=== PATIENT | female | born 1950 | race Caucasian/White ===

== ENCOUNTER → 2017-12-11 12:14 | Outpatient (CLI) | payer MEDICARE, MEDICAID | END | disposition home or self-care (01) | LOC: D.MRI 12:14 | DX: R51 Headache (principal); R26.9 Unspecified abnormalities of gait and mobility; H53.8 Other visual disturbances ==

== ENCOUNTER 2018-11-05 02:55 | Emergency (ER) | payer OTHER, MEDICAID ==
[~2018-11-05] VITALS: Ht 165.1 cm; Wt 54.5 kg
[2018-11-05 02:56] VITALS: Ht 165.1 cm; Wt 54.5 kg
[2018-11-05] MEDS ORDERED: PROZAC20 MG PO (02:57)
[2018-11-05] MEDS ORDERED: HYDROCODON-ACE1 EA10 PO (02:57)
[2018-11-05] MEDS ORDERED: LYRICA150 MG PO (02:57)
[2018-11-05 05:19] VITALS: BP 156/88
== END 2018-11-05 05:38 | disposition home or self-care (01) ==
LOC: D.ER 02:55
DX: S01.91XA Laceration without foreign body of unspecified part of head, initial encounter (principal); W18.09XA Striking against other object with subsequent fall, initial encounter; Y93.89 Activity, other specified; Y92.010 Kitchen of single-family (private) house as the place of occurrence of the external cause

== ENCOUNTER 2019-08-29 14:57 | Inpatient (IN) | payer OTHER, MEDICAID ==
[~2019-08-29] VITALS: Ht 165.1 cm; Wt 59.1 kg
[2019-08-29] VITALS (10 sets, daily range): BP systolic 112–152; BP diastolic 79–97; BMI 19.2
--- NOTE | ~2019-08-29 | HEMODYNAMI ---
PATIENT:JALEN JAMIL MEDICAL RECORD: [id number] : 52 LOCATION:[facility] ADMISSION DATE: 08/29/19 Generatedon:08/30/20199:45 Patient name: JALEN JAMIL Patient #: [id number] SSN: : 1950 Date of study: 08/30/2019 Page: Of Hemodynamic Procedure Report Patient Data Patient Demographics Procedure consent was obtained First Name: JALEN Gender: Female Last Name: OMERO : 1950 [facility] Initial: TILA Age: 68 year(s) Patient #: [id number] Race: Unknown Additional ID: [id number] Contact details Address: [address] [place] [address] [address] State: [place] City: [place] Zip code: [address] Past Medical History Allergies: No known allergies Admission Admission Data Admission Date: 08/29/2019 Admission Time: 16:48 Admit Source: Emergency department Room #: [id number] Height (in.): 64.96 BSA: 1.57 (m2) Height (cm.): 165 BMI: 19.47 (kg/m2) Weight (lbs.): 116.85 Weight (kg.): 53 Lab Results Lab Result Date: 08/30/2019 Lab Result Time: 0:00 Biochemistry Name Units Result Min Max BUN mg/dl 12 --(-*--)-- 7 18 Creatinine mg/dl 0.8 --(-*--)-- 0.6 1.3 eGFR ml/min 76.92099 *-(----)-- 90 120 NONAFRICAN CBC Name Units Result Min Max Hematocrit % 39.3 -*(----)-- 42 54 Hemoglobin g/dl 13.6 --(*---)-- 13.5 17.5 Procedure Procedure Types Cath Procedure Diagnostic Procedure LHC LH w/Coronaries Sedation Charges Moderate Sedation up to 15 minutes PCI Procedure Coronary Stent Coronary Stent Initial Hemochron ACT Test Procedure Description Procedure Date Procedure Date: 08/30/2019 Procedure Start Time: 9:08 Procedure End Time: 9:39 Procedure Staff Name Function Francisco Mills MD Performing Physician Krys Sam RT Monitor Olga Han RT Oil Separator Elena Lopez RT Scrub Padmini Fulton RN Nurse Procedure Data Cath Procedure Fluoroscopy Diagnostic fluoroscopy Total fluoroscopy Time: 7.5 time: 7.5 min min Diagnostic fluoroscopy Total fluoroscopy dose: 473 dose: 473 mGy mGy Contrast Material Contrast Material Type Amount (ml) Isovue 300 98 Entry Location Entry Primary Successful Side Size Upsize Upsize Entry Closure Succes sful Closure Location (Fr) 1 (Fr) 2 (Fr) Remarks Device Remarks Femoral Right 6 Fr 6 Fr Exoseal artery Short Long Estimated blood loss: 10 ml Diagnostic catheters Device Type Used For End Catheter Placement MULTIPACK JL 4.0 5Fr Procedure catheter MULTIPACK 3DRC 5Fr Procedure catheter MULTIPACK Pigtail 5 Fr Procedure catheter Procedure Complications No complications Procedure Medications Medication Administration Route Dosage 0.9% NaCl I.V. 100 ml/hr Oxygen etCO2 Nasal cannula 2 l/min Lidocaine 2% added to field 20 Heparin Flush Bag added to field 2 bags (1000units/500ml NS) Versed I.V. 2 mg Fentanyl I.V. 50 mcg Versed I.V. 2 mg Fentanyl I.V. 50 mcg Heparin Bolus I.V. 5000 units Plavix P.O. 75 mg Hemodynamics Rest BSA: 1.57 (m2) HGB: 13.6 (g/dl) O2 Consumption: Estimated: 150.42 (ml/min) O2 Co nsumption indexed: Estimated:95.81 (ml/min/m) Heart Rate: 78 (bpm) Pressure Samples Time Site Value (mmHg) Purpose Heart Use Rate(bpm) 9:18 LV 113/21,23 Snapshot 85 9:18 AO 116/67(77) Pullback 86 Gradients Valve Time Site Site 2 Mean SEP/DFP Peak To Heart Use 1 (mmHg) (sec/min) Peak Rate (mmHg) (bpm) Aortic 9:18 LV AO 4 15 86 116/67(77) Calculations Valve P-P Mean Valve Index Valve Source Name Gradient Area Flow (cm2) Aortic 4 4 Snapshots Pre Cath Intra NCS Post Cath Vital Signs Time Heart Resp SPO2 etCO2 NIBP (mmHg) Rhythm Pain Sedation Rate (ipm) (%) (mmHg) Status Level (bpm) 8:55:01 79 17 96 33 139/85(105) NSR 0 (11) 10(A) , No pain 8:59:11 80 13 96 26.2 135/86(111) NSR 0 (11) 10(A) , No pain 9:04:10 78 12 97 33.7 Measuring NSR 0 (11) 10(A) , No pain 9:04:34 81 17 97 35.2 126/79(106) NSR 0 (11) 10(A) , No pain 9:08:46 79 16 96 36.7 126/75(98) NSR 0 (11) 10(A) , No pain 9:12:54 78 13 96 30.7 113/74(89) NSR 0 (11) 10(A) , No pain 9:17:04 83 13 95 1.5 102/67(82) NSR 0 (11) 9(A) , No pain 9:21:12 80 14 96 11.9 103/60(84) NSR 0 (11) 9(A) , No pain 9:25:18 85 18 95 11.2 110/66(85) NSR 0 (11) 9(A) , No pain 9:29:25 83 10 97 38.2 101/66(83) NSR 0 (11) 9(A) , No pain 9:33:29 80 15 100 37.4 109/68(87) NSR 0 (11) 9(A) , No pain 9:37:35 77 17 100 34.4 115/75(95) NSR 0 (11) 10(A) , No pain Medications Time Medication Route Dose Verified Delivered Reason Notes Effectiveness by by 9:01:00 0.9% NaCl I.V. 100 Francisco Padmini used for ml/hr Gene Donaldo procedure RN 9:01:08 Oxygen etCO2 2 Francisco Padmini used for Nasal l/min Gene Donaldo procedure cannula MD MENDOZA 9:01:13 Lidocaine 2% added 20ml Francisco Singh for local to vial [facility] anesthetic field MD AVILA 9:01:17 Heparin Flush added 2 Francisco Francisco [facility] ([facility]units/500ml field MD AVILA NS) 9:06:13 Versed I.V. 2 mg Francisco Padmini for sedation St Saad Fulton MD RN 9:06:19 Fentanyl I.V. 50 Francisco Padmini for sedation mcg [facility] Saad Fulton MD RN 9:13:31 Versed I.V. 2 mg Francisco Padmini for sedation St Saad Fulton MD RN 9:13:33 Fentanyl I.V. 50 Francisco Padmini for sedation mcg [facility] Saad Fulton MD RN 9:16:14 Heparin Bolus I.V. 5000 Francisco Padmini for verifi ed units St Saad Fulton anticoagulation with Dr. AVILA RN [facility] 9:39:29 Plavix P.O. 75 mg Francisco Avendañoyla for Lonetree Donaldo antiplatelet RN therapy Procedure Log Time Note 8:21:53 Informed consent obtained and on chart 8:22:16 Procedure Status Urgent Heart Cath (IP). 8:22:17 Time tracking: Regular hours (M-F 7:00 - 5:00) 8:22:21 Plan of Care:Hemodynamics will remain stable., Cardiac rhythm will remain stable., Comfort level will be maintained., Respiratory function will remain adequate., Patient/ family verbilizes understanding of procedure., Procedure tolerated without complication., Recovers from procedure without complications.. 8:22:27 H&P Date Dictated: 08/30/2019 ER History on chart.. 8:22:36 Patient allergic to No known allergies 8:23:24 Lab Result : BUN 12 mg/dl 8:23:24 Lab Result : Creatinine 0.8 mg/dl 8:23:24 Lab Result : eGFR NONAFRICAN 76.22143 ml/min 8:23:24 Lab Result : Hemoglobin 13.6 g/dl 8:23:24 Lab Result : Hematocrit 39.3 % 8:23:33 Stress Test: no; N/A NSTEMI 8:24:53 Patient Weight : 116.85 lbs 8:24:56 Patient Height : 64.96 inches 8:25:05 Admit Source: Emergency department 8:35:59 Padmini Fulton RN sent for patient. Start room use. 8:47:22 Patient received from CVICU to CCL 1 Alert and oriented. Tansferred to table in Supine position. 8:47:23 Warm blankets applied, and jeison hugger turned on for patient comfort. 8:47:23 Correct patient and procedure confirmed by team. 8:47:24 ECG and BP/O2 sat monitors applied to patient. 8:48:06 Pre-procedure instructions explained to patient. 8:48:07 Pre-op teaching completed and patient verbalized understanding. 8:48:10 Family in waiting room. 8:48:12 Patient NPO since Midnight. 8:49:15 Previous problem with sedation/anesthesia? No ? 8:49:17 Snore? Yes 8:49:19 Sleep apnea? No 8:49:20 Deviated septum? No 8:49:22 Opens mouth fully? Yes 8:49:23 Sticks out tongue? Yes 8:49:26 Airway obstruction? No ? 8:49:38 Is patient on blood thinner?Yes 8:49:49 PT LOADED WITH 600 MG PLAVIX 8:49:52 Patient diabetic? No. 8:49:53 Patient not . Patient is over age 55. 8:49:58 Dentures? No ? 8:50:01 Pre procedure: right dorsailis pedis pulse 1+ Palpable, but thready & weak; easily obliterated 8:50:23 Patient pain scale 1/10 ?. 8:50:37 IV patent on arrival in right antecubital with 0.9% NaCl at O. 8:50:39 Lab results completed and on chart. 8:50:49 Right groin area was prepped with chlora-prep and draped in sterile fashion 8:50:50 Alarms reviewed by R. N. 8:50:50 Sharps counted by scrub and verified by R.N. 8:54:00 Vital chart was started 8:54:09 Rhythm: sinus rhythm 8:54:11 Full Disclosure recording started 8:54:21 Use device set Femoral Dx 8:54:23 ACIST Syringe (26454) opened to sterile field. 8:54:23 Bag Decanter (2001S) opened to sterile field. 8:54:24 ACIST Hand Control (13426) opened to sterile field. 8:54:25 ACIST Manifold (54436) opened to sterile field. 8:54:26 Tegaderm 4 x 4 (1626W) opened to sterile field. 8:54:28 EMERALD Guide Wire (287-550) opened to sterile field. 8:54:29 DIAGNOSTIC Multipack 5Fr catheter set (EA0978) opened to sterile field. 8:54:31 Medline Cath Pack ([id number]) opened to sterile field. 8:54:38 SHEATH 6FR Limon (WCA600) opened to sterile field. 8:54:54 WHISPER 300cm guide wire ([id number]) opened to sterile field. 8:54:54 INFLATOR Merit BasixCompak (IT5727) opened to sterile field. 8:55:10 Baseline sample Acquired. 9:01:00 0.9% NaCl 100 ml/hr I.V. was administered by Padmini Fulton RN; used for procedure; Verbal order read back and verified. 9:01:08 Oxygen 2 l/min etCO2 Nasal cannula was administered by aPdmini Fulton RN; used for procedure; Verbal order read back and verified. 9:01:13 Lidocaine 2% 20ml vial added to field was administered by Francisco Mills MD; for local anesthetic; Verbal order read back and verified. 9:01:17 Heparin Flush Bag (1000units/500ml NS) 2 bags added to field was administered by Francisco Mills MD; used for procedure; Verbal order read back and verified. 9:03:57 --------ALL STOP TIME OUT------ 9:03:58 Final Timeout: patient, procedure, and site verified with staff and physician. All members of the team are in agreement. 9:03:59 Right groin site verified by team. 9:04:02 Fire Safety Assessment: A--An alcohol-based skin anteseptic being used preoperatively., C--Open oxygen or nitrous oxide is being used., D--An ESU, laser, or fiber-optic light is being used. 9:04:06 Physical assessment completed. ASA score P 2 - A patient with mild systemic disease as per Francisco Mills MD. 9:05:08 2) 60-89 Mildly reduced kidney function, and other findings (as for stage 1) point to kidney disease. 9:05:12 Maximum allowable contrast dose (3.7 X eGFR X 0.75)210 ml. 9:05:15 Sedation plan: IV Moderate Sedation Medication:Versed, Fentanyl 9:06:13 Versed 2 mg I.V. was administered by Padmini Donaldo RN; for sedation; Verbal order read back and verified. 9:06:15 Procedure started. 9:06:19 Fentanyl 50 mcg I.V. was administered by Padmini Fulton RN; for sedation; Verbal order read back and verified. 9:06:35 Zero performed for pressure channel P1 9:08:01 Local anesthetic to right femoral artery with Lidocaine 2% by Francisco Mills MD.INITIAL ACCESS ONLY 9:10:20 A 6 Fr Short sheath was inserted into the Right Femoral artery 9:10:50 GLIDE WIRE ANGLE 260cm ([id number]) opened to sterile field. 9:11:12 GLIDE WIRE USED TO ADVANCE CATHETER. 9:12:15 LONG SHEATH NEEDED 9:12:21 SHEATH 6FR Destination (RSR01) opened to sterile field. 9:12:29 Sheath upsized to a 6 Fr Long. 9:13:31 Versed 2 mg I.V. was administered by Padmini Fulton RN; for sedation; Verbal order read back and verified. 9:13:33 Fentanyl 50 mcg I.V. was administered by Padmini Fulton RN; for sedation; Verbal order read back and verified. 9:13:40 A MULTIPACK JL 4.0 5Fr catheter was advanced over the wire and used for Procedure. 9:15:35 LCA angiography performed. 9:15:37 Catheter removed. 9:15:48 A MULTIPACK 3DRC 5Fr catheter was advanced over the wire and used for Procedure. 9:16:14 Heparin Bolus 5000 units I.V. was administered by Padmini Fulton RN; for anticoagulation; verified with Dr. Robbins Verbal order read back and verified. 9:16:36 RCA angiography performed. 9:16:38 Catheter removed. 9:17:08 A MULTIPACK Pigtail 5 Fr catheter was advanced over the wire and used for Procedure. 9:17:56 LV gram done using PERRY 9:17:59 Injector settings: Ml/sec: 10, Volume: 20, 9:18:19 LV hemodynamics recorded. 9:18:32 EF : 30 % 9:18:44 Catheter removed. 9:19:02 GUIDE 6FR XBLAD 3.5 catheter ([id number]) opened to sterile field. 9:19:15 Pre PCI Site: [place] has 100% stenosis. 9:19:20 6 Fr XBLAD 3.5 guide catheter was inserted over the wire 9:19:47 WHISPER 300 wire advanced. 9:24:27 Wire advanced across lesion. 9:25:01 Inflate balloon Inflation number: 1 A EMERGE OTW 3.0 x 15 balloon ([id number]) was prepped and advanced across the Prox CX , then inflated to 12 DAMION for 0:00 (min:sec) . 9:25:50 Inflation number: 2 The EMERGE OTW 3.0 x 15 balloon ([id number]) was reinflated across the Prox CX , to 6 DAMION for 0:00 (min:sec) . 9:26:14 Inflation number: 3 The EMERGE OTW 3.0 x 15 balloon ([id number]) was reinflated across the Prox CX , to 6 DAMION for 0:00 (min:sec) . 9:26:30 Inflation number: 4 The EMERGE OTW 3.0 x 15 balloon ([id number]) was reinflated across the Prox CX , to 8 DAMION for 0:00 (min:sec) . 9:26:49 Inflation number: 5 The EMERGE OTW 3.0 x 15 balloon ([id number]) was reinflated across the Prox CX , to 8 DAMION for 0:00 (min:sec) . 9:27:22 Inflation number: 6 The EMERGE OTW 3.0 x 15 balloon ([id number]) was reinflated across the Prox CX , to 12 DAMION for 0:00 (min:sec) . 9:28:04 Balloon removed over the wire. 9:31:47 Place stent Inflation Number: 7 A VALENTINE OTW 3.5 x 22 stent ([id number]) was prepped and advanced across the Prox CX . The stent was deployed at 14 DAMION for 0:00 (min:sec) . 9:32:36 Stent catheter was removed intact over wire. 9:32:37 Wire removed. 9:32:38 Guide catheter removed. 9:33:45 LONG SHEATH EXCHANGED FOR SHORT SHEATH 9:33:49 EXOSEAL 6Fr (EX600) opened to sterile field. 9:35:22 Sheath removed intact; hemostasis achieved with Exoseal to the Right Femoral artery. 9:35:24 Procedure ended.(Physican Out) 9:35:37 Fluoroscopy time 07.50 minutes. :35:41 Fluoroscopy dose: 473 mGy 9:35:41 Flurop Dose total: 473 9:35:52 Dose Area Product 39558 mGy/cm. 9:35:56 Contrast amount:Isovue 300 98ml. 9:35:59 Maximum allowable dose exceeded? No. 9:36:00 Sharps counted by scrub and verified by R.N. 9:36:25 Post-op/insertion site Right Femoral artery dressed using a 4 x 4 and Tegaderm. 9:36:27 Post-procedure physical assessment completed. ASA score P 2 - A patient with mild systemic disease as per Francisco Mills MD. 9:37:57 Post procedure rhythm: sinus rhythm 9:37:59 Estimated blood loss: 10 ml 9:38:01 Post procedure instruction explained to patient.Patient verbalizes understanding. 9:38:01 Patient needs reinforcement of post procedure teaching. 9:38:22 Procedure type changed to Cath procedure, Diagnostic procedure, LHC, C w/Coronaries, Sedation Charges, Moderate Sedation up to 15 minutes, PCI procedure, Coronary Stent, Coronary Stent Initial, Hemochron ACT Test 9:39:03 Procedure and supply charges have been captured, reviewed, submitted and are correct. 9:39:06 Procedure Complication : No complications 9:39:08 Vital chart was stopped 9:39:10 [facility] Findings: MVD- PCI performed (see procedure note) 9:39:12 Operative report dictated upon procedure completion. 9:39:12 See physician's report for complete and final results. 9:39:14 Report given to Pre/Post Procedure Room. 9:39:17 Patient transfered to PCU with Bed. 9:39:21 Procedure ended. 9:39:21 Full Disclosure recording stopped 9:39:26 ACC-PCI Only Patient was given prescriptions, or instructed by Francisco Mills MD to start/continue the following medications upon discharge: Plavix 9:39:28 End room use (Document Last) 9:39:29 Plavix 75 mg P.O. was administered by Padmini Fulton RN; for antiplatelet therapy; Verbal order read back and verified. 9:40:44 ACT drawn and resulted at 253 seconds. (normal therapeutic range 180-240 seconds). Intervention Summary Intervention Notes Time ActionType Lesion and Equipment Action# Pressure Duration Attributes Used 9:25:01 Inflate Prox CX EMERGE OTW 1 12 00:00 balloon 3.0 x 15 balloon ([id number]) 9:25:50 Reinflate Prox CX EMERGE OTW 2 6 00:00 balloon 3.0 x 15 balloon ([id number]) 9:26:14 Reinflate Prox CX EMERGE OTW 3 6 00:00 balloon 3.0 x 15 balloon ([id number]) 9:26:30 Reinflate Prox CX EMERGE OTW 4 8 00:00 balloon 3.0 x 15 balloon ([id number]) 9:26:49 Reinflate Prox CX EMERGE OTW 5 8 00:00 balloon 3.0 x 15 balloon ([id number]) 9:27:22 Reinflate Prox CX EMERGE OTW 6 12 00:00 balloon 3.0 x 15 balloon ([id number]) 9:31:47 Place stent Prox CX VALENTINE OTW 3.5 7 14 00:00 x 22 stent ([id number]) Device Usage Item Name Manufacture Quantity Catalog Number Hospital Part Current M inimal Lot# / Charge Number Stock Stock Serial# Code ACIST Syringe Acist 1 50280 564432 516726 284317 2 0 (10137) Medical Systems Inc Bag Decanter Microtek 1 2001S 666155 48420 660240 5 (2002S) Medical Inc. ACIST Hand Acist 1 97892 699597 530080 176914 5 Control Medical (16586) Systems Inc ACIST Acist 1 67314 717637 173214 714243 5 Manifold Medical (32875) Systems Inc Tegaderm 4 x 3M 1 1626W 668533 853025 114251 5 4 (1626W) EMERALD Guide Cardinal 1 502-455 308800 965350 963371 5 Wire Health (502-455) DIAGNOSTIC Cardinal 1 IX8919 366683 31816 794586 3 0 Multipack 5Fr Health catheter set (JT2408) Medline Cath Medline 1 HCAZ00134 917640 23456 775929 5 Pack (AIRZ47721) SHEATH 6FR Terumo 1 NEJ358 446129 202473 945498 4 0 Limon (TCU165) WHISPER 300cm Romeo 1 [id number] 207816 679132 067973 5 guide wire Vascular (3520507SH) INFLATOR Merit 1 GD1529 611909 120007 660415 1 5 [facility] BasixCompak (NK1180) GLIDE WIRE Terumo 1 DY2481 081300 831084 430331 5 ANGLE 260cm (XT3506) SHEATH 6FR Terumo 1 RSR01 644522 56885 349282 5 Destination (RSR01) MULTIPACK JL Cardinal 1 055473 5 4.0 5Fr Health catheter MULTIPACK Cardinal 1 434405 5 3DRC 5Fr Health catheter MULTIPACK Cardinal 1 005477 5 Pigtail 5 Fr Health catheter GUIDE 6FR Cardinal 1 [id number] 424939 378327 433050 1 0 XBLAD 3.5 Health catheter (81516607) EMERGE OTW [place] 1 [id number] 410320 276148 456618 5 [id number] 3.0 x 15 Scientific balloon ([id number]) VALENTINE OTW 3.5 Medtronic 1 [id number] 563135 6111670 379659 5 [id number] x 22 stent ([id number]) EXOSEAL 6Fr Cardinal 1 EX600 981388 942811 643183 1 0 (EX600) Health Signature Audit [place] Stage Time Signature Unsigned Intra-Procedure 08/30/2019 Krys Sam 9:44:28 AM RT(R) Intra-Procedure 08/30/2019 Padmini Fulton 9:44:45 AM RN Intra-Procedure 08/30/2019 Francisco Bettencourt 9:45:04 AM Saad AVILA [facility] [address] [place] [address]
[~2019-08-29 14:57] MED LIST: HYDROCODON-ACE1 EA10 PO; LYRICA150 MG PO; PROZAC20 MG PO
[2019-08-29] MEDS ORDERED: VALIUM5 MG PO (15:00)
--- NOTE | 2019-08-29 15:15 | NUR ---
PT REPORTS PAIN ACROSS ENTIRE CHEST THAT WOKE HER FROM SLEEP AROUND 0300. PT STATES "I JUST LAYED IN BED UNTIL I COULD GET UP THEN I FINALLY GOT OUT OF BED, DRANK SOME CHOCOLATE MILK. I IMMEDIATELY THREW THAT UP...MY FRIEND FINALLY CONVINCED ME TO COME IN BECAUSE I TOLD HER MY PAIN WAS STARTING TO GO UP IN TO MY THROAT AND THEN MY JAWS." PT DENIES ANY PREVIOUS CARDIAC HISTORY. PT IS ALERT AND ORIENTED AT THIS TIME. REPORTS "A LITTLE BIT" OF NAUSEA. HAS ONLY VOMITTED 1 X TODAY. PT ON CARDIAC, BP AND PULSE OX MONITORING. WILL CON'T TO MONITOR PATIENT FOR CHANGES. PT REPORTS CHEST PAIN IS 4/10 AT TIME OF MY ASSESSMENT, "BUT IT WAS LIKE A 8 OR 9 THIS MORNING. I WAS PRETTY MISERABLE."
[2019-08-29 15:28] LABS: BASOPHILS 0.1 % (0-2); EOSINOPHILS 0.1 % (0-7); HEMATOCRIT 39.3 % (36.0-48.0); HEMOGLOBIN 13.6 g/dL (12-16); IMMATURE GRANULOCYTES 0.2 % (0-5); MCH 32.9 pg (26.0-34.0); MCHC 34.6 g/dL (31.0-37.0); MCV 95.2 fL (80.0-100.0); MEAN PLATELET VOLUME 10.6 fL (7.4-10.4); MONOCYTES 7.1 % (2-11); NEUTROPHILS 83.5 % (40-80); PLATELET COUNT 321 10x3/uL (130-400); RBC 4.13 10x6/uL (4.00-5.40); WBC 11.6 10x3/uL (4.8-10.8)
[2019-08-29 15:36] LABS: CALC OSMOLALITY 276 mosm/kg (275-300); CALCIUM 9.3 mg/dL (8.5-10.1); CARBON DIOXIDE 25.3 mmol/L (21.0-32.0); CHLORIDE - SERUM 99 mmol/L (98-107); CREATININE - SERUM 0.9 mg/dL (0.6-1.3); GLUCOSE 128 mg/dL (74-106); POTASSIUM - SERUM 4.4 mmol/L (3.5-5.1); SODIUM 138 mmol/L (136-145); UREA NITROGEN 10 mg/dL (7-18); eGFR NON AFRICAN AMERICAN 66 mL/min (90-120)
[2019-08-29 15:41] LABS: APTT 25.1 SECONDS (22.8-39.4); INR 0.89 (0.85-1.17)
[2019-08-29 15:51] LABS: ALBUMIN 3.7 g/dL (3.4-5.0); ALKALINE PHOSPHATASE 129 U/L (30-120); ALT (SGPT) 38 U/L (10-68); BILIRUBIN - TOTAL 0.31 mg/dL (0.2-1.3); CKMB 269.3 U/L (0.0-3.6); MAGNESIUM - SERUM 1.7 mg/dL (1.8-2.4); PROTEIN - SERUM 7.3 g/dL (6.4-8.2)
[2019-08-29 15:52] LABS: CREATINE KINASE 2742 UL (21-215)
[2019-08-29 15:53] LABS: TROPONIN-I 42.343 ng/mL (0.000-0.060)
--- NOTE | 2019-08-29 16:00 | NUR ---
EDP, JAH, AT BEDSIDE UPDATING PT AND FAMILY ON POC.
--- NOTE | 2019-08-29 16:30 | NUR ---
PROVIDED PT WITH ICE WATER.
--- NOTE | 2019-08-29 17:28 | NUR ---
DR. PINEDA AT BEDSIDE.
--- NOTE | 2019-08-29 17:32 | NUR ---
REPORT CALLED TO KATE MUSIC AGENT, AND REPORT GIVEN IN SBAR FORMAT. CVICU 6 IS DIRTY AT THIS TIME. PT WILL BE TRANSPORTED AFTER EVS CLEANS ROOM.
--- NOTE | 2019-08-29 18:10 | NUR ---
ADMITTED FROM ER, STOOD UP FROM STRETCHER AND AMBULATED TO BED. SKIN WARM AND DRY. IV RIGHT HAND WITHOUT REDNESS OR SWELLING. SALINE LOCK. DENIES CHEST PAIN BUT JUST DOES NOT FEEL GOOD RIGHT NOW. MONITOR SR. FEELS LIKE SHE MAY HAVE UTI. MED LIST REVIEWED. NO KNOW ALLERGIES.
[2019-08-29] MEDS ORDERED: LYRICA200 MG PO (18:20)
--- NOTE | 2019-08-29 19:00 | NUR ---
REPORT RECEIVED. RECEIVED PATIENT IN BED, AWAKE AND ALERT. ORIENTED X 4. FAMILY AT BEDSIDE. QUESTIONS ANSWERED. ASSESSMENT COMPLETED PER FLOW SHEET WITH NO ACUTE DISTRESS OBSERVED. MONITORS CONNECTED TO PATIENT WITH ALARMS SET. VSS. CALL LIGHT IN REACH AND ABLE TO UTILIZE TO MAKE NEEDS KNOWN.
--- NOTE | 2019-08-29 21:00 | NUR ---
RESTING WITH EYES CLOSED, EASILY ROUSED AND ALERT. DENIES NEEDS AT THIS TIME. VSS. CALL LIGHT IN REACH
[2019-08-29 22:22] LABS: CKMB 508.8 U/L (0.0-3.6); CREATINE KINASE 4000 UL (21-215); TROPONIN-I 80.106 ng/mL (0.000-0.060)
--- NOTE | 2019-08-29 23:00 | NUR ---
RESTING WITH EYES CLOSED, EASILY ROUSED AND ALERT. VSS. CALL LIGHT IN REACH. REASSESSMENT COMPLETED PER FLOW SHEET WITH NO ACUTE DISTRESS OBSERVED.
[2019-08-30] VITALS (28 sets, daily range): BP systolic 84–140; BP diastolic 45–84
--- NOTE | 2019-08-30 01:00 | NUR ---
RESTING WITH EYES CLOSED, EASILY ROUSED AND ALERT. VSS. CALL LIGHT IN REACH
--- NOTE | 2019-08-30 03:00 | NUR ---
RESTING WITH EYES CLOSE, EASILY ROUSED AND ALERT. REASSESSMENT COMPLETED PER FLOW SHEET WITH NO ACUTE DISTRESS OBSERVED. VSS. CALL LIGHT IN REACH
--- NOTE | 2019-08-30 04:45 | NUR ---
RECIEVED PATIENT TO ROOM CV01 FROM ED ACCOMPANIED BY ED RN AND PATIENT'S . ASSISSTED TO CVICU BED, MONITORS CONNECTED TO PATIENT. HR 35. BP 103/42 NO ACUTE DISTRESS OBSERVED. PATIENT AWAKE ALERT AND CONVERSANT. ORIENTED X 4. ORIENTED TO UNIT/ROOM/CALL LIGHT AND VISITATION SCHEDULE. QUESTIONS ANSWERED. CALL LIGHT PLACED IN EASY REACH AND ABLE TO UTILIZE TO MAKE NEEDS KNOWN.
[2019-08-30 06:52] LABS: CALC OSMOLALITY 272 mosm/kg (275-300); CALCIUM 8.8 mg/dL (8.5-10.1); CARBON DIOXIDE 26.7 mmol/L (21.0-32.0); CHLORIDE - SERUM 99 mmol/L (98-107); CREATININE - SERUM 0.8 mg/dL (0.6-1.3); GLUCOSE 152 mg/dL (74-106); MAGNESIUM - SERUM 1.6 mg/dL (1.8-2.4); POTASSIUM - SERUM 4.3 mmol/L (3.5-5.1); SODIUM 135 mmol/L (136-145); UREA NITROGEN 12 mg/dL (7-18); eGFR NON AFRICAN AMERICAN 76 mL/min (90-120)
[2019-08-30 06:54] LABS: CKMB 359.6 U/L (0.0-3.6); CREATINE KINASE 3987 UL (21-215)
[2019-08-30 08:32] LABS: BASOPHILS 0.1 % (0-2); EOSINOPHILS 0 % (0-7); HEMATOCRIT 37.6 % (36.0-48.0); HEMOGLOBIN 12.7 g/dL (12-16); IMMATURE GRANULOCYTES 0.2 % (0-5); LYMPHOCYTES 6.8 % (15-50); MCH 31.9 pg (26.0-34.0); MCHC 33.8 g/dL (31.0-37.0); MCV 94.5 fL (80.0-100.0); MEAN PLATELET VOLUME 10.9 fL (7.4-10.4); MONOCYTES 9.9 % (2-11); PLATELET COUNT 317 10x3/uL (130-400); RBC 3.98 10x6/uL (4.00-5.40); RDW 12.7 % (11.5-14.5)
[2019-08-30 08:40] LABS: CHOL - HDL RATIO 4.3 ratio (2.3-4.1); LDL-HDL RATIO 3.1 ratio (1.5-3.5)
--- NOTE | 2019-08-30 10:24 | NUR ---
0845: TO [facility] VIA BED. 1000: RETURN FROM [facility].
--- NOTE | 2019-08-30 18:32 | HP ---
PATIENT: JALEN JAMIL MEDICAL RECORD: [id number] ACCOUNT: [id number] LOCATION:IZA ChakrabortyCV06 : 52 ADMISSION DATE: 08/29/19 PCP: LETICIA BEATTY HISTORY AND PHYSICAL EXAMINATION REASON FOR ADMISSION: Chest pain. HISTORY OF PRESENT ILLNESS: The patient is a 68-year-old female with no previous cardiac history, presents to the Emergency Room by way of family member after waking about 3:00 a.m. this morning with substernal chest pain eventually radiating to her neck and ears with nausea and diaphoresis. She thought it was indigestion and eventually came to the hospital about 3:00 when her grandson said it might be her heart. In the ED, she received nitroglycerin and morphine with relief in her symptoms and now chest pain free. Initial cardiac enzymes are elevated with CPK of 2742. CPK-MB of 269.3, troponin of 42.34 with a normal EKG. Dr. Perez stabilized the patient, consulted Dr. Robbins who requested anticoagulation, CCU admission and PTCA in the morning unless she becomes unstable tonight. She states she has been little fatigued recently, but has not had any exertional chest pain and was surprised that she was having a heart attack. PAST MEDICAL HISTORY: Fibromyalgia, history of benzodiazepine dependence, hyperlipidemia, essential hypertension, insomnia, osteoarthritis of her hip, and degenerative lumbar disc disease. PAST SURGICAL HISTORY: She has had hysterectomy, incidental appendectomy and elective breast implants. HOME MEDICATIONS: Valium 5 mg p.o. twice a day., [place] 10/325 t.i.d., Prozac 40 mg daily, Lyrica 200 mg p.o. b.i.d., magnesium oxide 400 mg p.o. b.i.d., cetirizine 10 mg a day, Ventolin HFA inhaler p.r.n., and Cogentin 1 mg b.i.d. SOCIAL HISTORY: She is , has had new living situation, now living at the [facility] after some of her family, sisters, moved to the [facility]. She is a half pack a day smoker for 30 years. Smokes some pot, but does not drink alcohol. FAMILY HISTORY: Positive for coronary artery disease and diabetes. REVIEW OF SYSTEMS: CONSTITUTIONAL: No fever or fatigue. HEENT: No recent visual change, sinus congestion, or sore throat. Does wear glasses. RESPIRATORY: No shortness of breath or cough except for mild shortness of breath during her episode today. CARDIAC: No prior history of exertional chest pain, palpitations until early this morning with substernal chest pain radiating into her neck and both ears. No recent exertional dyspnea. GASTROINTESTINAL: He has had some nausea with chest pain today, but otherwise no recent dyspepsia, change in stools, blood per rectum. GENITOURINARY: No incontinence. GYNECOLOGIC: No vaginal bleeding. PSYCHIATRIC: Admits to depressed mood. PHYSICAL EXAMINATION: HISTORY AND PHYSICAL [id number] OMEROJALEN ADORNO VITAL SIGNS: Temperature 98.1, pulse 65, blood pressure 144/91 with a sat 97% on room air. GENERAL: The patient is alert and oriented. HEENT: Eyes are clear. Oropharynx unremarkable. NECK: Supple. CHEST WALL: Nontender. BREAST: Not examined. ABDOMEN: Soft, nontender. No organomegaly. LUNGS: Clear. PELVIC: Deferred. EXTREMITIES: No CC&E. NEUROLOGIC: Oriented to person, place, and time. Cranial nerves intact, but no motor deficits. Gait is not tested. LABORATORY DATA: Shows a white count of 11.6 thousand, H&H of 13.6 and 39.3 with normal diff. Chemistry, glucose of 128 nonfasting. Magnesium low at 1.7. CPK 2742. MB 269.3, troponin 42.34. Potassium 4.4. INR is 0.89. Chest x-ray unremarkable except for breast implants. EKG shows no acute changes. ASSESSMENT: Non-ST elevated myocardial infarction, depression, fibromyalgia, and allergic rhinitis. PLAN: As above, the patient will be admitted to the CV ICU for anticoagulation. She has been loaded with Plavix and cardiology consult with Dr. Robbins. TRANSINT:[id number] Voice Confirmation ID: [id number] DOCUMENT ID: [id number] NELSON PINEDA MD at 1832 CC: [id number] DICTATION DATE: 08/29/19 174 GEOSPATIAL TECHNICIAN: 08/29/19 2309 [place] [address]
--- NOTE | 2019-08-30 19:00 | NUR ---
REPORT RECEIVED. RECEIVED PATIENT IN BED, RESTING WITH EYES CLOSED. EASILY ROUSED AND ALERT. ASSESSMENT COMPLETED PER FLOW SHEET WITH NO ACUTE DISTRESS OBSERVED. MONITORS CONNECTED TO PATIENT WITH ALARMS SET. VSS. CALL LIGHT IN REACH AND ABLE TO UTILIZE TO MAKE NEEDS KNOWN
--- NOTE | 2019-08-30 21:00 | NUR ---
RESTING WITH EYES CLOSED. VSS. CALL LIGHT IN REACH
--- NOTE | 2019-08-30 23:00 | NUR ---
REASSESSMENT COMPLETED PER FLOW SHEET WITH NO ACUTE DISTRESS OBSERVED. VSS. CALL LIGHT IN REACH
[2019-08-31] VITALS (15 sets, daily range): BP systolic 90–111; BP diastolic 43–63; Ht 165.1 cm; Wt 59.1 kg
--- NOTE | 2019-08-31 01:00 | NUR ---
RESTING WITH EYES CLOSED, EASILY ROUSED AND ALERT. VSS . CALL LIGHT IN REACH
--- NOTE | 2019-08-31 03:00 | NUR ---
RESTING WITH EYES CLOSED, EASILY ROUSED AND ALERT. REASSESSMENT COMPLETED PER FLOW SHEET WITH NO ACUTE DISTRESS OBSERVED. CALL LIGHT IN REACH
[2019-08-31 04:49] LABS: BASOPHILS 0.1 % (0-2); EOSINOPHILS 0 % (0-7); HEMATOCRIT 31.9 % (36.0-48.0); HEMOGLOBIN 10.5 g/dL (12-16); IMMATURE GRANULOCYTES 0.3 % (0-5); LYMPHOCYTES 9.2 % (15-50); MCH 30.9 pg (26.0-34.0); MCHC 32.9 g/dL (31.0-37.0); MCV 93.8 fL (80.0-100.0); MEAN PLATELET VOLUME 10.3 fL (7.4-10.4); MONOCYTES 12.4 % (2-11); RDW 12.8 % (11.5-14.5)
--- NOTE | 2019-08-31 05:00 | NUR ---
RESTING WITH EYES CLOSED, EASILY ROUSED AND ALERT. VSS. CALL LIGHT IN REACH
[2019-08-31 05:05] LABS: PLATELET COUNT 234 10x3/uL (130-400)
[2019-08-31 05:09] LABS: CALC OSMOLALITY 267 mosm/kg (275-300); CALCIUM 8.4 mg/dL (8.5-10.1); CARBON DIOXIDE 26.7 mmol/L (21.0-32.0); CHLORIDE - SERUM 99 mmol/L (98-107); CREATININE - SERUM 0.7 mg/dL (0.6-1.3); GLUCOSE 117 mg/dL (74-106); POTASSIUM - SERUM 4.3 mmol/L (3.5-5.1); SODIUM 132 mmol/L (136-145); eGFR NON AFRICAN AMERICAN 88 mL/min (90-120)
[2019-08-31 05:12] LABS: MAGNESIUM - SERUM 2.1 mg/dL (1.8-2.4); UREA NITROGEN 18 mg/dL (7-18)
--- NOTE | 2019-08-31 09:07 | NUR ---
0700 PT RECIEVED IN BED ALERT AND ORIENTED VSS DENIES PAIN AND ALL NEEDS SEE SHIFT ASSESSMENT FOR DETAILS 0830 ATE 100% BREAKFAST UP IN CHAIR 0900 ASSISTED BACK TO BED, PER DR SANTIAGO OK TO TRANSFER TO PCU
--- NOTE | 2019-08-31 18:52 | MORECARE ---
CASE MANAGEMENT DISCHARGE SUMMARY PATIENT: JALEN JAMIL TILA UNIT: [id number] ADM DATE: 08/29/19 AGE: 68 : 51 SEX: F [facility] AUTHOR: EMMANUEL SEGOVIA PHYSICIAN: REFERRING PHYSICIAN: LETICIA BEATTY MD DATE OF SERVICE: 08/31/19 Discharge Plan Patient Name: JALEN JAMIL Facility: [facility]:[place] : 1950 Planned Disposition: Home Anticipated Discharge Date: Discharge Date: Expected LOS: Initial Reviewer: [email or web address] Initial Review Date: 08/31/2019 Generated: 08/31/19 7:52 pm Patient Name: JALEN JAMIL Page 61055 at 1852 All edits/amendments must be made on the electronic document DICTATION DATE: 08/31/191851 FIELD MACHINIST: SINCERE 08/31/191851 RPT#: [id number] DC DATE: STATUS: ADM IN [facility] [address] [place] [address] END OF REPORT
--- NOTE | 2019-08-31 18:59 | MORECARE ---
CASE MANAGEMENT DISCHARGE SUMMARY PATIENT: JALEN JAMIL TILA UNIT: [id number] ADM DATE: 08/29/19 AGE: 68 : 51 SEX: F ROOM/BED: D.06 AUTHOR: JULIETTE,DOC PHYSICIAN: REFERRING PHYSICIAN: LETICIA BEATTY MD DATE OF SERVICE: 08/31/19 Discharge Plan Patient Name: JALEN JAMIL Facility: [facility]:[place] : 1950 Planned Disposition: Home Anticipated Discharge Date: Discharge Date: Expected LOS: Initial Reviewer: [email or web address] Initial Review Date: 08/31/2019 Generated: 08/31/19 7:58 pm Comments DCP- Discharge Planning Updated by [email or web address]: Wendi Duarte on 08/31/19 5:[address] Patient Name: JALEN JAMIL Admission Status: ER Accout number: [id number] Admission Date: 08-29-2019 : 1950 Admission Diagnosis: Attending: LETICIA BEATTY Current LOS: 2 Anticipated DC Date: Planned Disposition: Home Primary Insurance: [employer]-DV Discharge Planning Comments: CM met with patient to complete initial dc planning assessment. CM educated patient on the CM role and verbal consent given by patient to complete assessment. Patient lives at home alone where she is independent with her care. At discharge patient plans to return home and feels this is a safe discharge. CM discussed availability of home health, rehab services, and medical equipment. She will have family drive her home. Patient denied known discharge needs at this time. CM will continue to follow and will assist as needed with dc plans/needs. Personal Chef: Wendi Duarte DCPIA - Discharge Planning Initial Assessment Updated by [email or web address]: Wendi Duarte on 08/31/19 6:54 pm * Is the patient Alert and Oriented? Yes * How many steps to enter\exit or inside your home? * PCP ROGERIO * Pharmacy [facility] * Preadmission Environment Home Alone * ADLs Independent * Equipment None * List name and contact numbers for known caregivers / representatives who currently or will assist patient after discharge: NHAN MENEZES [facility] - [phone] * Verbal permission to speak to the caregivers and representatives has been obtained from the patient. Yes * Community resources currently utilized None * Additional services required to return to the preadmission environment? No * Can the patient safely return to the preadmission environment? Yes * Has this patient been hospitalized within the prior 30 days at any hospital? No Last DP export: 08/31/19 5:52 pm Patient Name: JALEN JAMIL Page [id number] at 1859 All edits/amendments must be made on the electronic document DICTATION DATE: 08/31/191857 MANIPULATOR OPERATOR: SINCERE 08/31/191857 RPT#: [id number] DC DATE: STATUS: ADM [facility] [address] [place] [address] END OF REPORT
--- NOTE | 2019-08-31 19:00 | NUR ---
REPORT RECEIVED, SHIFT ASSESSMENT COMPLETE PER FLOW SHEET, PT SLEEPING WAKES AAOx4, DENIES PAIN AT THIS TIME, VSS, REPOSITIONED IN BED FOR COMFORT, 22g PIV IN RIGHT FA PATENT SALINE LOCKED DRSG C/D/I, ALL PULSES PALPABLE, SCD'S ON BLE, PT DENIES NEEDS AT THIS TIME, CALL LIGHT IN REACH, BED ALARM ON, WILL CONTINUE TO MONITOR
--- NOTE | 2019-08-31 21:00 | NUR ---
PT OUT OF BED TO BATHROOM, VOID NOTED PER PT, PT FLUSHED URINAL PRIOR TO NURSE ASSESSING, AMBULATED BACK TO BED WITHOUT ASSIST, REPOSITIONED IN BED FOR COMFORT, VSS, SCD'S PLACED ON BLE, CALL LIGHT IN REACH, BED ALARM ON, LARGE CUP WATER GIVEN PER REQUEST, MEDS GIVEN PER MAR/ORDERS, PT DENIES OTHER NEEDS AT THIS TIME, WILL CONTINUE TO MONITOR
[2019-09-01] VITALS (9 sets, daily range): BP systolic 91–110; BP diastolic 51–69
--- NOTE | 2019-09-01 00:30 | NUR ---
PT OUT OF BED TO BATHROOM, PT CLEANED PERIAREA WITH SURECARE WIPES PRIOR TO VOID IN SPECIMEN CONTAINER, URINE SENT TO LAB FOR UA, PT AMBULATED BACK TO BED AND REPOSITIONED FOR COMFORT, VSS, PT DENIES PAIN OR NEEDS AT THIS TIME, CALL LIGHT IN REACH, BED ALARM ON, WILL CONTINUE TO MONITOR
[2019-09-01 01:47] LABS: BILIRUBIN NEGATIVE (NEGATIVE); GLUCOSE NEGATIVE (NEGATIVE); KETONE MODERATE mg/dL (NEGATIVE); NITRITE NEGATIVE (NEGATIVE); UROBILINOGEN NORMAL (NORMAL)
[2019-09-01 01:48] LABS: BACTERIA FEW /hpf (NEGATIVE); EPITHELIAL CELLS 0-5 /hpf (0-5); RED CELLS - URINE 0-5 /hpf (0-5); WHITE CELLS - URINE 0-5 /hpf (NEGATIVE)
--- NOTE | 2019-09-01 03:00 | NUR ---
PT SLLEPING COMFORTABLY IN BED, WAKES EASY AAOx4, DENIES PAIN OR NEEDS AT THIS TIME, VSS, REPOSITIONED FOR COMFORT, SCD'S ON BLE, CALL LIGHT IN REACH, BED ALARM ON, WILL CONTINUE TO MONITOR
--- NOTE | 2019-09-01 04:37 | NUR ---
CALL LIGHT PRESSED, PT ASSISTED IN REPOSITIONING GOWN AND LINES FOR COMFORT, PT C/O LEFT SIDED HEADACHE 5/10 ON NUMERIC PAIN SCALE STATED PAIN STATRTED A " COUPLE HOURS AGO" AND " JUST GOT WORSE" IS WHY PT PRESSED CALL LIGHT, ALL VSS, MED GIVEN PER AUG/ORDERS, WILL CONTINUE TO MONITOR
--- NOTE | 2019-09-01 05:00 | NUR ---
PT OUT OF BED TO BATHROOM, DARK YELLOW CLEAR URINE NOTED, PT AMBULATED BACK TO BED AND REPOSITIONED FOR COMFORT, VSS, NSR ON CM, CALL LIGHT IN REACH, BED ALARM ON, PT DENIES FURTHER NEEDS, WILL CONTINUE TO MONITOR
[2019-09-01] MEDS ORDERED: PLAVIX75 MG PO (13:53)
[2019-09-01] MEDS ORDERED: NITROQUICK0.4 MG SL (13:55)
[2019-09-01] MEDS ORDERED: LIPITOR20 MG PO (13:56)
[2019-09-01] MEDS ORDERED: Zebeta PO (13:56)
[2019-09-01] MEDS ORDERED: ASPIRIN81 MG PO (13:56)
[2019-09-01] MEDS ORDERED: MACROBID100 MG PO (13:57)
--- NOTE | 2019-09-02 08:18 | CN ---
PATIENT NAME:SHANIA JAMIL MEDICAL RECORD: [id number] : 52 LOCATION:MARIA TID.CV06 ADMIT DATE: 08/29/19 ACCOUNT: [id number] CONSULTING PHYSICIAN: FARHEEN SANTIAGO MD REFERRING PHYSICIAN: LETICIA BEATTY MD DATE OF CONSULTATION: 08/30/2019 HISTORY OF PRESENT ILLNESS: Shania Jamil is a 68-year-old female with no known history of coronary artery disease, jail smoking history as well as family history. She was seen in the ER with onset of chest pain, thought that she was indigestion. Initial enzymes found to be elevated because of NSTEMI, no acute ST-T changes, ST elevation. We are asked to see her concerning her cardiovascular status. PAST MEDICAL HISTORY: Includes a history of neuropathy. ALLERGIES: None known. MEDICATIONS: Prozac 20 mg p.o. day, [place] 5/225 one q.4 hours p.r.n., Valium 5 b.i.d., Lyrica 200 mg p.o. b.i.d. SOCIAL HISTORY: Lives by herself, smokes about a pack a day. No alcohol. No set exercise program. Easily takes care of all her ADLs. REVIEW OF SYSTEMS: The patient reports easy bruising but reports no swollen glands. The patient reports no fever, no night sweats, no significant weight gain, no significant weight loss. No significant exercise tolerance. The patient reports no dry eyes, no irritation, no vision change. Patient reports no difficulty hearing and no ear pain. Patient reports no frequent nose bleeds or nose and sinus problems. Patient reports on arm pain on exertion. No shortness of breath while lying down. No history of heart murmur. Patient reports no cough, no wheezing or coughing up blood. Patient reports no abdominal pain, no vomiting. Normal appetite. No diarrhea and not vomiting blood. No nausea and no constipation. Patient reports no incontinence. No difficulty urinating. No hematuria. No increased frequency. Patient reports no muscle aches. No weakness, no arthralgias, no back pain. No swelling of the extremities. Patient reports no abnormal mole, no jaundice, no rashes. Reports no loss of consciousness. No weakness and no numbness. No seizures, dizziness, or headaches. The patient reports no depression, no sleep disturbance, feeling safe in a relationship and no alcohol abuse. Patient reports on fatigue. Reports no runny nose or sinus pressure. No itching, no hives, and no frequent sneezing. PHYSICAL EXAMINATION: GENERAL: Pleasant female, in no acute distress, appears stated age. VITAL SIGNS: Blood pressure 128/66, pulse 79 and regular. HEENT: Normocephalic, atraumatic. NECK: No JVD or bruit. HEART: Regular. LUNGS: Slightly prolonged expiratory phase with few expiratory wheezes. ABDOMEN: Soft, nontender. EXTREMITIES: Pulses are decreased, 1+. No edema. DIAGNOSTIC DATA: EKG shows no ST elevation. Nonspecific ECG changes inferolaterally. CONSULT REPORT [id number] SHANIA JAMIL IMPRESSION: NSTEMI. PLAN: For angiography, intervention based on above. TRANSINT:[id number] Voice Confirmation ID: [id number] DOCUMENT ID: [id number] FARHEEN SANTIAGO MD at 0818 CC: [id number] DICTATION DATE: 08/30/19 1000 CLIENT SOLUTIONS MANAGER: 08/30/19 1505 DIS IN 09/01/19 [facility] [address] [place] [id number]
--- NOTE | 2019-09-02 08:19 | OP ---
PATIENT NAME: JALEN JAMIL MEDICAL RECORD: [id number] :52 LOCATION:MyleneMAGDALENOChastity RameyRobinCV06 ADMISSION DATE:08/29/19 SURGEON: FARHEEN SANTIAGO MD DATE OF OPERATION: 08/30/2019 PROCEDURE: Left heart catheterization, selective coronary angiography, right femoral artery approach. CATHETERS: A 5-Togolese sheath, 5/4 left and right Brennen, 5/4 pig. The procedure was well tolerated. The patient returned to the betancourt, sheath removed. ExoSeal device placed. FINDINGS: Left ventriculography in 30-degree PERRY view shows global hypokinesis. Overall reduced LV function, estimated EF 30%. CORONARY ANATOMY: LEFT MAIN: Left main is free of disease. LAD: Has about 80% proximal stenosis. CIRCUMFLEX: Circumflex moderate size circumflex totally occluded in proximal portion. RIGHT CORONARY ARTERY: Has a smooth-walled vessel, free of disease. PLAN: Intervention momentarily. DESCRIPTION OF PROCEDURE: After a 5-Togolese sheath was exchanged for a long 6-Togolese sheath, XB LAD guide catheter provided excellent guide catheter support followed by a 300 cm Whisper wire. Whisper wire placed across the totally occluded circumflex down this portion of vessel. Predeployment balloon used was a 3.0 x 15 mm Taylor. Stent deployed was a 3.5 x 18 mm Ottoniel up to 14 atmospheres. Final angiography shows excellent resolution of 100% stenosis. No residual. AYSHA flow improved from 0 to 3. Sheath closed with ExoSeal device. The patient was previously loaded on Plavix. Heparin was used in the case. TRANSINT:[id number] Voice Confirmation ID: [id number] DOCUMENT ID: [id number] FARHEEN SANTIAGO MD at 0819 CC: [id number] DICTATION DATE: 08/30/19 1002 BLANK DRILLER: 08/30/19 1954 DIS IN 09/01/19 [facility] [address] [place] [address]
--- NOTE | 2019-09-02 19:22 | MORECARE ---
CASE MANAGEMENT DISCHARGE SUMMARY PATIENT: JALEN JAMIL TILA UNIT: [id number] ADM DATE: 08/29/19 AGE: 68 : 51 SEX: F ROOM/BED: D.06 AUTHOR: JULIETTE,DOC PHYSICIAN: REFERRING PHYSICIAN: LETICIA BEATTY MD DATE OF SERVICE: 09/02/19 Discharge Plan Patient Name: JALEN JAMIL Facility: [facility]:[place] : 1950 Planned Disposition: Home Anticipated Discharge Date: Discharge Date: 09/01/2019 Expected LOS: Initial Reviewer: [email or web address] Initial Review Date: 08/31/2019 Generated: 09/02/19 8:22 pm Comments DCP- Discharge Planning Updated by [email or web address]: Wendi Duarte on 08/31/19 5:[address] Patient Name: JALEN JAMIL Admission Status: ER Accout number: [id number] Admission Date: 08-29-2019 : 1950 Admission Diagnosis: Attending: LETICIA BEATTY Current LOS: 2 Anticipated DC Date: Planned Disposition: Home Primary Insurance: [id number] Discharge Planning Comments: CM met with patient to complete initial dc planning assessment. CM educated patient on the CM role and verbal consent given by patient to complete assessment. Patient lives at home alone where she is independent with her care. At discharge patient plans to return home and feels this is a safe discharge. CM discussed availability of home health, rehab services, and medical equipment. She will have family drive her home. Patient denied known discharge needs at this time. CM will continue to follow and will assist as needed with dc plans/needs. Structural Steel Trades Worker: Wendi Duarte DCPIA - Discharge Planning Initial Assessment Updated by [email or web address]: Wendi Duarte on 08/31/19 6:54 pm * Is the patient Alert and Oriented? Yes * How many steps to enter\exit or inside your home? * PCP ROGERIO * Pharmacy [facility] * Preadmission Environment Home Alone * ADLs Independent * Equipment None * List name and contact numbers for known caregivers / representatives who currently or will assist patient after discharge: NHAN MENEZES [facility] - [phone] * Verbal permission to speak to the caregivers and representatives has been obtained from the patient. Yes * Community resources currently utilized None * Additional services required to return to the preadmission environment? No * Can the patient safely return to the preadmission environment? Yes * Has this patient been hospitalized within the prior 30 days at any hospital? No Coverage Notice Reviewer: [id number] Jaimie Duarte Notice Issued Date-Time: 09/01/2019 15:05 Notice Type: IM Discharge Notice Notice Delivered To: Patient Relationship to Patient: Self Mill Helper Name: Delivery Method: HAND - Hand Delivered Tram Days: Prior Verbal Notification: Recipient Understood Notice: Yes Recipient Signature: Yes Med Rec Note Co-signed by Attending: Coverage Notice Comment: Last DP export: 08/31/19 5:59 pm Patient Name: JALEN JAMIL Page [id number] at 1921 All edits/amendments must be made on the electronic document DICTATION DATE: 09/02/191921 DIFFERENTIAL SPECIALIST: SINCERE 09/02/191921 RPT#: [id number] DC DATE:09/01/19 STATUS: DIS IN [facility] [address] [place] [address] END OF REPORT
== END 2019-09-01 15:45 | disposition home or self-care (01) | DRG 247 ==
LOC: D.ER 14:57 → D.ICU 16:48 → D.CVICU 16:48
PROVIDERS: Emergency Medicine; Family Medicine; Internal Medicine Interventional Cardiology; ADMIT Family Medicine; ATTEND Family Medicine
PROC: B2151ZZ Fluoroscopy of Left Heart using Low Osmolar Contrast (ICD-10-PCS; 2019-08-30)
PROC: 4A023N7 Measurement of Cardiac Sampling and Pressure, Left Heart, Percutaneous Approach (ICD-10-PCS; 2019-08-30)
PROC: 027034Z Dilation of Coronary Artery, One Artery with Drug-eluting Intraluminal Device, Percutaneous Approach (ICD-10-PCS; principal; 2019-08-30 08:30)
PROC: B2111ZZ Fluoroscopy of Multiple Coronary Arteries using Low Osmolar Contrast (ICD-10-PCS; 2019-08-30 08:30)
DX: I21.4 Non-ST elevation (NSTEMI) myocardial infarction (principal); N39.0 Urinary tract infection, site not specified; F32.9 Major depressive disorder, single episode, unspecified; M79.7 Fibromyalgia; J30.9 Allergic rhinitis, unspecified; E78.5 Hyperlipidemia, unspecified

== ENCOUNTER 2019-09-06 13:01 | Inpatient (IN) | payer OTHER, MEDICAID ==
[~2019-09-06] VITALS: Ht 165.1 cm; Wt 63.6 kg
--- NOTE | ~2019-09-06 | HEMODYNAMI ---
PATIENT:JALEN JAMIL MEDICAL RECORD: [id number] : 52 [facility]# [id number] ADMISSION DATE: 09/06/19 Generatedon:09/07/20198:58 Patient name: JALEN JAMIL Patient #: [id number] SSN: [id number] : 1950 Date of study: 09/07/2019 Page: Of Hemodynamic Procedure Report Patient Data Patient Demographics Procedure consent was obtained First Name: JALEN Gender: Female Last Name: OMERO : 1950 [facility] Initial: TILA Age: 68 year(s) Patient #: [id number] Race: SSN: [id number] Additional ID: [id number] Contact details Address: [address] [place] [address] [address] State: [place] City: [place] Zip code: [address] Past Medical History Allergies: No known allergies Admission Admission Data Admission Date: 09/06/2019 Admission Time: 14:51 Arrival Date: 09/07/2019 Arrival Time: 0:00 Admit Source: Transfer Insurance Payor: Private acute care facility health insurance Room #: D.2114 [facility] #: [id number] Height (in.): 64.96 BSA: 1.7 (m2) Height (cm.): 165 BMI: 23.51 (kg/m2) Weight (lbs.): 141.1 Weight (kg.): 64 Lab Results Lab Result Date: 09/07/2019 Lab Result Time: 0:00 Biochemistry Name Units Result Min Max BUN mg/dl 19 --(----)*- 7 18 Creatinine mg/dl 0.8 --(-*--)-- 0.6 1.3 eGFR ml/min 76.51709 *-(----)-- 90 120 NONAFRICAN CBC Name Units Result Min Max Hematocrit % 32.4 *-(----)-- 42 54 Hemoglobin g/dl 11 *-(----)-- 13.5 17.5 Procedure Procedure Types Cath Procedure Diagnostic Procedure LHC FFR/IVUS FFR Initial PCI Procedure Coronary Stent Coronary Stent Initial Procedure Description Procedure Date Procedure Date: 09/07/2019 Procedure Start Time: 8:35 Procedure End Time: 8:55 Procedure Staff Name Function Milad Smallwood MD Performing Physician Padmini Fulton RN Nurse Sharif Carr RT Monitor Elena Lopez RT Scrub Procedure Data Cath Procedure Fluoroscopy Diagnostic fluoroscopy Total fluoroscopy Time: 3.8 time: 3.8 min min Diagnostic fluoroscopy Total fluoroscopy dose: dose: 209.87 mGy 209.87 mGy Contrast Material Contrast Material Type Amount (ml) Isovue 300 57 Entry Location Entry Primary Successful Side Size Upsize Upsize Entry Closure Succes sful Closure Location (Fr) 1 (Fr) 2 (Fr) Remarks Device Remarks Femoral Left 6 Fr Exoseal artery Short Procedure Medications Medication Administration Route Dosage 0.9% NaCl I.V. 100 ml/hr Oxygen etCO2 Nasal cannula 2 l/min Lidocaine 2% added to field 20 Heparin Flush Bag added to field 2 bags (1000units/500ml NS) Versed I.V. 2 mg Fentanyl I.V. 50 mcg Versed I.V. 2 mg Fentanyl I.V. 50 mcg Heparin Bolus I.V. 4000 units Versed I.V. 2 mg Hemodynamics Rest BSA: 1.7 (m2) HGB: 11 (g/dl) O2 Consumption: Estimated: 153.69 (ml/min) O2 Consu mption indexed: Estimated:90.41 (ml/min/m) Heart Rate: 64 (bpm) Snapshots Pre Cath Intra NCS Post Cath Vital Signs Time Heart Resp SPO2 etCO2 NIBP Rhythm Pain Sedation Rate (ipm) (%) (mmHg) (mmHg) Status Level (bpm) 8:11:47 64 20 99 22.6 120/71(96) NSR 0 (11) 10(A) , No pain 8:15:51 62 13 98 31.7 108/65(90) NSR 0 (11) 10(A) , No pain 8:19:52 59 13 96 33.2 99/59(73) SB 0 (11) 10(A) , No pain 8:23:52 58 12 98 12.8 84/58(63) SB 0 (11) 10(A) , No pain 8:27:50 57 13 97 21.8 89/53(65) SB 0 (11) 10(A) , No pain 8:31:47 57 11 97 9 88/53(67) SB 0 (11) 10(A) , No pain 8:35:45 58 13 98 11 88/51(69) SB 0 (11) 10(A) , No pain 8:39:42 58 11 96 11.3 88/54(68) SB 0 (11) 10(A) , No pain 8:43:42 57 12 95 0 86/48(65) SB 0 (11) 9(A) , No pain 8:47:37 61 11 97 10.5 95/58(75) SB 0 (11) 10(A) , No pain 8:51:37 60 11 97 27.9 86/56(66) SB 0 (11) 10(A) , No pain 8:55:35 60 11 98 21.9 91/52(69) SB 0 (11) 10(A) , No pain Medications Time Medication Route Dose Verified Delivered Reason Notes Effectiveness by by 8:10:53 0.9% NaCl I.V. 100 Milad Padmini used for ml/hr Cl Fulton corrections specialist 8:11:06 Oxygen etCO2 2 Milad Padmini used for Nasal l/min Cl Fulton procedure cannula RN 8:11:11 Lidocaine 2% added 20ml Milad Milad for local to vial Cl Smallwood MD anesthetic field 8:11:16 Heparin Flush added 2 Milad Milad used for Bag to bags Cl Smallwood MD procedure (1000units/500ml field NS) 8:29:11 Versed I.V. 2 mg Milad Padmini for sedation Cl Fulton RN 8:29:18 Fentanyl I.V. 50 Milad Padmini for sedation mcg Cl Fulton RN 8:34:43 Versed I.V. 2 mg Milad Padmini for sedation Cl Fulton RN 8:34:53 Fentanyl I.V. 50 Milad Padmini for sedation mcg Cl Fulton RN 8:37:52 Heparin Bolus I.V. 4000 Milad Padmini for verifi ed units Cl Fulton anticoagulation with Dr. REJI Smallwood 8:41:35 Versed I.V. 2 mg Milad [place] for sedation Cl Fulton php mysql web developer Log Time Note 7:19:52 Informed consent obtained and on chart 7:20:00 Arrival Date: 09/07/2019 12:00:00 AM 7:20:42 Insurance Payor : Private health insurance 7:20:49 Patient Height : 64.96 inches 7:20:54 Patient Weight : 141.1 lbs 7:22:18 Lab Result : BUN 19 mg/dl 7::18 Lab Result : Hematocrit 32.4 % 7:22:18 Lab Result : eGFR NONAFRICAN 76.12818 ml/min 7:22:18 Lab Result : Creatinine 0.8 mg/dl 7:22:18 Lab Result : Hemoglobin 11 g/dl 7:23:06 Admit Source: Transfer acute care facility 7:23:13 Procedure Status Urgent Heart Cath (IP). 7:24:10 Patient allergic to No known allergies 7:26:48 Lab results completed and on chart. 7:26:55 Risk of Mortality: 1.6 7:27:00 Risk of blood transfusion: 5.0 7:27:05 Risk of SUSSY: 3.8 7:35:18 Time tracking: Regular hours (M-F 7:00 - 5:00) 7:35:37 ACC Patient presents with Stable Angina CCS Anginal Class 3--Marked limitation of physical activity, angina occurs with ordinary activity.. 7:51:59 Padmini Fulton RN sent for patient. Start room use. 7:52:09 Plan of Care:Hemodynamics will remain stable., Cardiac rhythm will remain stable., Comfort level will be maintained., Respiratory function will remain adequate., Patient/ family verbilizes understanding of procedure., Procedure tolerated without complication., Recovers from procedure without complications.. 8:01:08 Patient received from PCU to CCL 3 Alert and oriented. Tansferred to table in Supine position. 8:01:12 Warm blankets applied, and jeison hugger turned on for patient comfort. 8:01:13 Correct patient and procedure confirmed by team. 8:10:44 Vital chart was started 8:10:53 0.9% NaCl 100 ml/hr I.V. was administered by Padmini Fulton RN; used for procedure; Verbal order read back and verified. 8:11:06 Oxygen 2 l/min etCO2 Nasal cannula was administered by Padmini Fulton RN; used for procedure; Verbal order read back and verified. 8:11:11 Lidocaine 2% 20ml vial added to field was administered by Milad Smallwood MD; for local anesthetic; Verbal order read back and verified. 8:11:16 Heparin Flush Bag (1000units/500ml NS) 2 bags added to field was administered by Milad Smallwood MD; used for procedure; Verbal order read back and verified. 8:12:17 ECG and BP/O2 sat monitors applied to patient. 8:12:18 Baseline sample Acquired. 8:12:22 Rhythm: sinus rhythm 8:12:24 Full Disclosure recording started 8:13:13 H&P Date Dictated: 09/06/2019 Within 30 days and on chart.. 8:13:16 Pre-procedure instructions explained to patient. 8:13:18 Pre-op teaching completed and patient verbalized understanding. 8:13:21 Family unavailable. 8:13:25 Patient NPO since Midnight. 8:13:32 Is the patient allergic to Iodine/contrast media? No. 8:13:46 Is patient on blood thinner?Yes 8:13:49 ACC The patient was administered the following blood thiners within the last 24 hours: ACCPlavix 8:13:55 Patient diabetic? No. 8:14:01 Patient not . Patient is over age 55. 8:14:03 ----Pre-sedation anethsthesia assessment.---- 8:14:05 Previous problem with sedation/anesthesia? No ? 8:14:08 Snore? Yes 8:14:09 Sleep apnea? No 8:14:11 Deviated septum? No 8:14:12 Opens mouth fully? Yes 8:14:14 Sticks out tongue? Yes 8:14:17 Airway obstruction? No ? 8:14:21 Dentures? No ? 8:14:32 Pre procedure: left dorsailis pedis pulse 1+ Palpable, but thready & weak; easily obliterated 8:14:39 Modified Milton's test Ulnar > 7 seconds. 8:14:42 Patient pain scale 0/10 ?. 8:14:55 IV patent on arrival in left antecubital with 0.9% NaCl at [facility]. 8:15:02 Left groin area was prepped with chlora-prep and draped in sterile fashion 8:15:03 Alarms reviewed by R. N. 8:15:04 Sharps counted by scrub and verified by R.N. 8:15:20 Use device set Acist 8:15:21 ACIST Syringe (64269) opened to sterile field. 8:15:22 ACIST Hand Control (26349) opened to sterile field. 8:15:22 ACIST Manifold (07822) opened to sterile field. 8:15:32 EMERALD Guide Wire (502-835) opened to sterile field. 8:15:34 Bag Decanter (2002S) opened to sterile field. 8:15:36 Medline Cath Pack ([id number]) opened to sterile field. 8:16:12 INFLATOR Merit BasixCompak (QI0064) opened to sterile field. 8:16:20 SHEATH 6FR Jeanerette (WVC595) opened to sterile field. 8:20:56 CHOICE PT Extra Support 182cm wire ([id number]) opened to sterile field. 8:21:51 GUIDE 6FR XBLAD 3.5 catheter ([id number]) opened to sterile field. 8:25:40 Physician arrived 8:25:41 --------ALL STOP TIME OUT------ 8:25:42 Final Timeout: patient, procedure, and site verified with staff and physician. All members of the team are in agreement. 8:25:45 Left groin site verified by team. 8:25:49 Fire Safety Assessment: A--An alcohol-based skin anteseptic being used preoperatively., C--Open oxygen or nitrous oxide is being used., D--An ESU, laser, or fiber-optic light is being used. 8:25:53 Physical assessment completed. ASA score P 2 - A patient with mild systemic disease as per Milad Smallwood MD. 8:25:58 2) 60-89 Mildly reduced kidney function, and other findings (as for stage 1) point to kidney disease. 8:26:04 Maximum allowable contrast dose (3.7 X eGFR X 0.75)210 ml. 8:26:16 Sedation plan: IV Moderate Sedation Medication:Versed, Fentanyl 8:26:34 Zero performed for pressure channel P1 8:29:11 Versed 2 mg I.V. was administered by Padmini Fulton RN; for sedation; Verbal order read back and verified. 8:29:18 Fentanyl 50 mcg I.V. was administered by Padmini Fulton RN; for sedation; Verbal order read back and verified. 8:34:43 Versed 2 mg I.V. was administered by Padmini Fulton RN; for sedation; Verbal order read back and verified. 8:34:53 Fentanyl 50 mcg I.V. was administered by Padmini Fulton RN; for sedation; Verbal order read back and verified. 8:35:11 Procedure started. 8:35:17 Local anesthetic to left femerol artery with Lidocaine 2% by Milad Smallwood MD.INITIAL ACCESS ONLY 8:36:32 A 6 Fr Short sheath was inserted into the Left Femoral artery 8:36:54 Pre PCI Site: [place] LAD has 80% stenosis. 8:37:11 6 Fr XBLAD 3.5 guide catheter was inserted over the wire 8:37:52 Heparin Bolus 4000 units I.V. was administered by Padmini Fulton RN; for anticoagulation; verified with Dr. Smallwood Verbal order read back and verified. 8:38:16 [place] Verrata Plus pressure wire ([id number]) opened to sterile field. 8:39:05 PREPARING TO IFR THE CIRCUMFLEX DISTAL TO STENT 8:39:21 PRESSURE wire advanced. 8:40:43 Wire advanced across lesion. 8:41:35 Versed 2 mg I.V. was administered by Padmini Fulton RN; for sedation; Verbal order read back and verified. 8:42:03 mCirc lesion measured at 1.04 with IFR 8:42:18 Wire removed. 8:42:31 CHOICE wire advanced. 8:42:41 LAD 8:45:12 Place stent Inflation Number: 1 A VALENTINE RX 2.5 x 12 stent ([id number]) was prepped and advanced across the Dist LAD 80. The stent was deployed at 11 DAMION for 0:10 (min:sec) 0. 8:45:48 Stent catheter was removed intact over wire. 8:46:45 Place stent Inflation Number: 1 A VALENTINE RX 3.0 x 18 stent ([id number]) was prepped and advanced across the Mid LAD 80. The stent was deployed at 11 DAMION for 0:10 (min:sec) 0. 8:46:51 Stent catheter was removed intact over wire. 8:46:52 Wire removed. 8:46:53 Guide catheter removed. 8:47:51 EXOSEAL 6Fr (EX600) opened to sterile field. 8:48:55 Procedure ended.(Physican Out) 8:49:11 Fluoroscopy time 03.80 minutes. 8:49:20 Flurop Dose total: 209.87 8:49:20 Fluoroscopy dose: 209.87 mGy 8:49:31 Dose Area Product 1130.42 mGy/cm. 8:49:39 Contrast amount:Isovue 300 57ml. 8:49:43 Maximum allowable dose exceeded? No. 8:49:48 Sharps counted by scrub and verified by R.N. 8:50:05 ACT drawn and resulted at 208 seconds. (normal therapeutic range 180-240 seconds). 8:50:15 Sheath removed intact; hemostasis achieved with Exoseal to the Left Femoral artery. 8:51:06 Procedure type changed to Cath procedure, Diagnostic procedure, LHC, FFR/IVUS, FFR Initial, PCI procedure, Coronary Stent, Coronary Stent Initial 8:53:03 Insertion/operative site no bleeding no hematoma. 8:53:09 Post-op/insertion site Left Femoral artery dressed using a 4 x 4 and Tegaderm. 8:53:22 Post left femerol artery:stable 8:53:26 Post Procedure Pulses reassessed and unchanged 8:53:30 Post-procedure physical assessment completed. ASA score P 2 - A patient with mild systemic disease as per Milad Smallwood MD. 8:53:38 Post procedure rhythm: sinus rhythm 8:53:41 Procedure and supply charges have been captured, reviewed, submitted and are correct. 8:55:19 Vital chart was stopped 8:55:30 Operative report dictated upon procedure completion. 8:55:31 See physician's report for complete and final results. 8:55:34 Report given to PCU. 8:55:42 Patient transfered to PCU with Bed. 8:55:45 Procedure ended. 8:55:45 Full Disclosure recording stopped 8:56:05 ACC-PCI Only Patient was given prescriptions, or instructed by Milad Smallwood MD to start/continue the following medications upon discharge: Aspirin, Plavix 8:56:07 End room use (Document Last) 8:57:48 End room use (Document Last) Intervention Summary Intervention Notes Time ActionType Lesion and Equipment Used Action# Pressure Duration Attributes 8:45:12 Place stent Dist LAD VALENTINE RX 2.5 x 1 11 00:10 12 stent ([id number]) 8:46:45 Place stent Mid LAD VALENTINE RX 3.0 x 1 11 00:10 18 stent ([id number]) Device Usage Item Name Manufacture Quantity Catalog Number Hospital Part Current Minimal Lot# / Charge Number Stock Stock Serial# Code ACIST Syringe Acist 1 39133 029681 705961 152297 20 (88944) Medical Systems Inc ACIST Hand Acist 1 96830 280383 391864 206373 5 Control Medical (44092) Systems Inc ACIST Manifold Acist 1 54405 586468 929646 604776 5 (81108) Medical Systems Inc EMERALD Guide Cardinal 1 502-455 123014 730832 505660 5 Wire (502-427) Health Bag Decanter Microtek 1 2001S 773225 09376 216022 5 () Medical Inc. Medline Cath Medline 1 [id number] 267056 61430 044799 5 Pack ([id number]) INFLATOR Merit Merit 1 SZ7707 226602 674693 757994 15 Mersive (SR2371) SHEATH 6FR Terumo 1 RFE122 389910 162972 569943 40 Jeanerette (FAO659) CHOICE PT [place] 1 [id number] 284849 308813 148930 5 Extra Support Scientific 182cm wire ([id number]) GUIDE 6FR Cardinal 1 [id number] 132428 633217 343256 10 XBLAD 3.5 Health catheter (55423076) [place] 1 [id number] 774441 777076067 353857 5 Verrata Plus pressure wire (55008K) VALENTINE RX 2.5 x Medtronic 1 [id number] 909588 4482596 962969 5 12 stent ([id number]) VALENTINE RX 3.0 x Medtronic 1 [id number] 647238 8947702 055055 5 18 stent ([id number]) EXOSEAL 6Fr Cardinal 1 EX600 928607 447163 745723 10 (EX600) Health Signature Audit Calvin Stage Time Signature Unsigned Intra-Procedure 09/07/2019 Sharif Carr 8:56:32 AM RT(R) (CV) Intra-Procedure 09/07/2019 Padmini Fulton 8:57:48 AM RN Intra-Procedure 09/07/2019 Milad Smallwood 8:58:16 [address] [place] [id number] [place] [id number]
--- NOTE | ~2019-09-06 | CN ---
PATIENT NAME:JALEN JAMIL MEDICAL RECORD: [id number] : 52 LOCATION:D.M2 D.2114 ADMIT DATE: 09/06/19 ACCOUNT: [id number] CONSULTING PHYSICIAN: MAGAN PRESTON MD REFERRING PHYSICIAN: LETICIA BEATTY MD DATE OF CONSULTATION: 09/06/2019 ADMITTING DIAGNOSES: 1. Unstable angina. 2. Coronary artery disease. 3. Recent myocardial infarction with PTCA stent left circumflex, disease LAD. 4. Hyperlipidemia. HISTORY OF PRESENT ILLNESS: Mrs. Jamil presents with increasing shortness of breath and chest pain. She is status post PTCA stent of her left circumflex for an acute lateral myocardial infarction last week, she has concomitant disease of the LAD at 80-90% stenosis times 2 was set for that later this week, possibly. PHYSICAL EXAMINATION: CONSTITUTIONAL/GENERAL APPEARANCE: Well nourished, well developed, appears stated age. EYES: Lids and conjunctivae noninjected. No discharge. No pallor. ENT: Lips within normal limit. No cyanosis. No pallor. NECK: Carotid arteries, bilateral normal upstroke. No bruits. No thrills. No jugular venous pressure or distention. CERVICAL LYMPH NODES: Nontender. Nonenlarged. THYROID: Not enlarged. No nodules. CARDIOVASCULAR: Precordial exam, nondisplaced. No heaves or pericardial thrills. Rate and rhythm, regular. Heart sounds, normal S1, normal S2. No S3, no gallop, no rub. Systolic murmur, not heard. Diastolic murmur, not heard. RESPIRATORY: Respiratory effort, unlabored. Normal curvature. No thoracic deformity. No chest wall tenderness. Percussion, resonant. Auscultation, clear. No wheezes, no rales, no rhonchi. ABDOMEN: Soft, nondistended, nontender. No abdominal pain, no vomiting and normal appetite. MUSCULOSKELETAL: No joint tenderness, normal gait, normal tone. SKIN: Warm and dry. OVERALL IMPRESSION: Escalating angina with known disease of the left anterior descending. We will admit and plan for PTCA stent of the LAD tomorrow. TRANSINT:[id number] Voice Confirmation ID: [id number] DOCUMENT ID: [id number] MAGAN PRESTON MD CC: [id number] DICTATION DATE: 09/06/19 1343 SET AND EXHIBIT DESIGNER: 09/06/192009 ADM IN [facility] [address] [place] [place] [id number]
--- NOTE | ~2019-09-06 | OP ---
PATIENT NAME: JALEN JAMIL MEDICAL RECORD: [id number] :52 LOCATION:D.M2 D.2114 ADMISSION DATE:09/06/19 SURGEON: MAGAN PRESTON MD DATE OF OPERATION: 09/07/2019 PROCEDURES: 1. PTCA stent LAD. 2. Selective coronary angiography. 3. IFR left circumflex. INDICATION: Angina and coronary artery disease. PROCEDURE IN DETAIL: After informed consent was obtained and after a detailed description of risks, benefits as well as alternative therapies, the patient elected to proceed with angiogram and angioplasty. The left femoral area was prepped and draped in normal sterile fashion. Left femoral artery was cannulated via modified Seldinger technique with placement of 6-Romanian sheath. All catheters exchanged through this sheath. FINDINGS: The left circumflex has previously placed stents. There is a questionable stenosis after this; however, IFR was normal. We turned our attention to the LAD: Had 80% stenosis times 2, this was addressed with a 2.5 x 12 and 3.0 x 18 both Ottoniel stents. Result was 0% residual stenosis. OVERALL IMPRESSION: Successful percutaneous transluminal angioplasty stent of the left anterior descending going from 80% initial stenosis times 2 to 0% residual. TRANSINT:[id number] Voice Confirmation ID: [id number] DOCUMENT ID: [id number] MAGAN PRESTON MD CC: [id number] DICTATION DATE: 09/07/19 0849 SAND MIXER: 09/07/19 1854 ADM IN [facility] [address] [place] [address]
--- NOTE | ~2019-09-06 | EC ---
PATIENT:JALEN JAMIL DATE OF SERVICE: 09/06/19 SEX: F MEDICAL RECORD: [id number] DATE OF : 52 LOCATION:D.M2 D.211 AGE OF PATIENT: 68 ADMISSION DATE: 09/06/19 REFERRING PHYSICIAN: INTERPRETING PHYSICIAN: MAGAN SMALLWOOD MD ECHOCARDIOGRAM REPORT ECHO CHARGES 4 ECHO COMPLETE Date: 09/06/19 CLINICAL DIAGNOSIS: SOB, [place] ECHOCARDIOGRAPHIC MEASUREMENTS (adult normal given) AC root (d.<3.7cm) 2.3 cm LV Septum d (<1.2 cm> 0.8 cm Valve Excursion 1.5 cm LV Septum (systole) 1.5 cm Left Atria (s.<4.0cm> 4.4 cm LVPW d(<1.2cm) 1.0 cm RV (d.<2.3cm) 1.9 cm LVPW (sytole) 1.1 cm LV diastole(<5.6CM) 5.7 cm MV E-F(>70mm/sec) cm LV systole 3.7 cm LVOT Diameter 1.7 cm MV exc.(>10mm) cm Est.ejection fraction (50-75%) % DOPPLER: LVIT cm/sec A 37 cm/sec E 87 cm/sec LA cm/sec RVSP 58.0 mmHg LVOT 43 cm/sec AOP1/2T m/s Asc. Ao 177 cm/sec RVOT 54 cm/sec RA cm/sec PA 66 cm/sec AV Gradient Peak 12.6 mmHg AV Mean 7.6 mmHg AV Area 0.4 cm MV Gradient Peak 7.0 mmHg MV Mean 1.9 mmHg MV Area cm COMMENTS: Game Designer/Creative Director: Kathryn HYMAN Ornamental Metal Worker: 1 Dr. Smallwood TAPE# PACS Pericardial Effusion N DATE OF SERVICE: ECHOCARDIOGRAM FINDINGS: 1. Left ventricular chamber size is mildly dilated. Left ventricular systolic function is mildly reduced at 45% to 50%. 2. Left atrium is enlarged at 4.5 cm. Right atrium and right ventricular chamber sizes are within normal limits. 3. Valvular structures have normal structure and motion. ECHOCARDIOGRAM REPORT [id number] JALEN JAMIL 4. Doppler interrogation reveals mild mitral regurgitation, mild tricuspid regurgitation, no other valvular insufficiency or stenosis. Pulmonary systolic pressure is elevated estimated at 58 mmHg. 5. No evidence of pericardial effusion or left ventricular thrombus. TRANSINT:[id number] Voice Confirmation ID: [id number] DOCUMENT ID: [id number] MAGAN SMALLWOOD MD CC: [id number] DICTATION DATE: 09/06/19 1606 SHEAR GRINDER OPERATOR HELPER: 09/06/19 1908 ADM IN [address] [id number]
[~2019-09-06 13:01] MED LIST changes: +ASPIRIN81 MG PO; +LIPITOR20 MG PO; +LYRICA200 MG PO; +MACROBID100 MG PO; +NITROQUICK0.4 MG SL; +PLAVIX75 MG PO; +VALIUM5 MG PO; +Zebeta PO
[2019-09-06 13:33] LABS: BASOPHILS 0.4 % (0-2); EOSINOPHILS 4.7 % (0-7); HEMATOCRIT 32.4 % (36.0-48.0); IMMATURE GRANULOCYTES 0.2 % (0-5); LYMPHOCYTES 12.3 % (15-50); MCH 32.3 pg (26.0-34.0); MEAN PLATELET VOLUME 10.3 fL (7.4-10.4); MONOCYTES 12.7 % (2-11); NEUTROPHILS 69.7 % (40-80); RBC 3.41 10x6/uL (4.00-5.40); RDW 13.4 % (11.5-14.5); WBC 9.6 10x3/uL (4.8-10.8)
[2019-09-06 13:39] LABS: CALC OSMOLALITY 268 mosm/kg (275-300); CALCIUM 8.8 mg/dL (8.5-10.1); CHLORIDE - SERUM 97 mmol/L (98-107); CREATININE - SERUM 0.8 mg/dL (0.6-1.3); GLUCOSE 118 mg/dL (74-106); POTASSIUM - SERUM 3.7 mmol/L (3.5-5.1); SODIUM 133 mmol/L (136-145); UREA NITROGEN 19 mg/dL (7-18); eGFR NON AFRICAN AMERICAN 76 mL/min (90-120)
[2019-09-06 13:41] LABS: PLATELET COUNT 409 10x3/uL (130-400)
[2019-09-06 13:49] VITALS: BP 110/70
[2019-09-06 14:02] LABS: ALBUMIN 2.6 g/dL (3.4-5.0); ALKALINE PHOSPHATASE 107 U/L (30-120); ALT (SGPT) 27 U/L (10-68); CKMB 0.7 U/L (0.0-3.6); CREATINE KINASE 69 UL (21-215); PRO BNP 5045 pg/mL (0-125); PROTEIN - SERUM 6.6 g/dL (6.4-8.2)
[2019-09-06 14:05] LABS: TROPONIN-I 2.852 ng/mL (0.000-0.060)
--- NOTE | 2019-09-06 14:05 | NUR ---
ERP INFORMED OF TROPONIN 2.852.
[2019-09-06 14:30] VITALS: BP 117/75
[2019-09-06 15:30] VITALS: BP 124/73
[2019-09-06 16:30] VITALS: BP 163/85
--- NOTE | 2019-09-06 16:35 | NUR ---
ALISSON COMPLETE AT 2245.
--- NOTE | 2019-09-06 17:20 | NUR ---
RECEIVED PT TO ROOM 2113 VIA STRETCHER FROM ER AAOX4 RESP SOB O2 ON @5LPM CARLA W/D COLOR WNL WILL CONT TO MONITOR
[2019-09-06 17:45] VITALS: BP 113/70; Ht 165.1 cm; Wt 63.6 kg
[2019-09-06 20:00] VITALS: BP 97/54
[2019-09-06 20:56] LABS: CKMB 1.7 U/L (0.0-3.6); CREATINE KINASE 95 UL (21-215)
[2019-09-06 21:00] LABS: TROPONIN-I 3.081 ng/mL (0.000-0.060)
--- NOTE | 2019-09-06 22:38 | NUR ---
INITIAL ROUNDS COMPLETED AT 1914 HRS. PT DENIED ANY DISCOMFORT. ASSESSMENT COMPLETED AT 1954 HRS. VSS. SR PER CM HR 64. ALERT AND ORIENTED TO PERSON, PLACE AND TIME. GOMEZ. O2 5LNC. IV TO LAC WITH IVAB INFUSING. LUNGS DIMINISHED IN BASES BILAT. PERMITS FOR LHC, BLOOD TRANSFUSION SIGNED AT 2019 HRS. PT STATED UNDERSTANDING. PM MEDS GIVEN. PT REFUSED IV BUMEX. PT CURRENTLY RESTING WITH EYES CLOSED. RESP EVEN AND REGULAR. SR UP X2, CALL LIGHT WITHIN REACH.
[2019-09-07] VITALS: BP 95/54
--- NOTE | 2019-09-07 00:25 | NUR ---
VSS. PT DENIES ANY DISCOMFORT. SR UP X2, CALL LIGHT WITHIN REACH AND BED ALARM ON.
--- NOTE | 2019-09-07 01:39 | HP ---
PATIENT: JALEN JAMIL MEDICAL RECORD: [id number] ACCOUNT: [id number] LOCATION:. D.2114 : 51 ADMISSION DATE: 09/06/19 PCP: LETICIA BEATTY HISTORY AND PHYSICAL EXAMINATION DATE OF ADMISSION: CHIEF COMPLAINT: Chest pain and cough. HISTORY OF PRESENT ILLNESS: This is a 68-year-old female with a history of fibromyalgia, benzodiazepine dependence, hyperlipidemia, and hypertension, who was admitted about a week ago with an acute myocardial infarction. At that time, she underwent angiogram showing total occlusion of circumflex artery that was stented and an 80% stenosis of the LAD, which has not been stented. She is scheduled to come back to the hospital on Saturday09/09/2019 to get that stent. The patient states since she was discharged, she started having more and more chest pain and she has had a "major wet" cough. She denies any fever or chills. No nausea. No vomiting. She was brought to the ER today where white count was normal. Basic metabolic panel was normal. Troponin was elevated at 2.8. Liver functions were normal. ProBNP elevated at 5045. Chest x-ray showed questionable bilateral lower lobe pneumonia. She is admitted. Cardiology has been consulted. PAST MEDICAL HISTORY: Fibromyalgia, benzodiazepine dependence, hyperlipidemia, hypertension, insomnia, osteoarthritis, degenerative disc disease of the lumbar spine, acute myocardial infarction on 08/29/2019. PAST SURGICAL HISTORY: Hysterectomy, appendectomy, breast augmentation, and stent to circumflex artery. SOCIAL HISTORY: She is , lives at the [facility]. HOME MEDICATIONS: Include Valium 5 mg twice a day, hydrocodone [place] p.r.n. (states she takes rarely), Prozac 40 mg once a day (states that was reduced to 20, but she has not gotten that prescription filled yet), Lyrica 200 mg twice a day, aspirin 81 mg once a day, atorvastatin 20 mg once a day, Plavix 75 mg once a day, and Zebeta 5 mg once a day. DRUG ALLERGIES: None known. HABITS: Smokes half pack of cigarettes a day. Denies alcohol, but admits to some marijuana. FAMILY HISTORY: Her parents had coronary artery disease and diabetes. REVIEW OF SYSTEMS: GENERAL: No major weight changes. HEENT: No particular sinus or allergy problems. RESPIRATORY: Not aware of diagnosis of COPD or emphysema. CARDIAC: See above history with recent [place] and a stent with a second stent pending. GASTROINTESTINAL: Has occasional heartburn. GENITOURINARY: No significant problems there. MUSCULOSKELETAL: Fibromyalgia and low back pain. NEUROLOGIC: No seizures or migraines. HISTORY AND PHYSICAL [id number] JALEN JAMIL PSYCHIATRIC: Depression. PHYSICAL EXAMINATION: VITAL SIGNS: Today, temperature 98.2, pulse 67, respirations 18, blood pressure 113/70, O2 sat 94%. GENERAL: She is awake and alert. She does not appear to be in acute distress at this time. SKIN: Warm and dry. HEENT: Grossly within normal limits. NECK: Supple. No JVD or bruit. HEART: Regular rate and rhythm. LUNGS: Few rales in the bases bilaterally. ABDOMEN: Soft, flat, nontender. EXTREMITIES: No edema. LABORATORY DATA: CBC with a white count of 9600, hemoglobin 11, hematocrit 32.4. Basic metabolic panel is all normal. Liver functions are normal. Troponin elevated at 2.852. ProBNP 5045. Chest x-ray shows possible bilateral lower lobe pneumonia. ASSESSMENT: 1. Angina with known coronary artery disease of LAD. 2. Possible pneumonia. 3. Congestive heart failure with elevated proBNP. 4. Tobacco dependence. PLAN: Started IV antibiotics. She is given IV Bumex started in the ER. Cardiology has been consulted and will probably go for stent tomorrow. Other tests or procedures as warranted. TRANSINT:[id number] Voice Confirmation ID: [id number] DOCUMENT ID: [id number] SRAVANI VALENTE MD at 0139 CC: [id number] DICTATION DATE: 09/06/191918 MANAGER RESOURCE: 09/07/19 0050 ADM IN [facility] [address] [place] [address]
--- NOTE | 2019-09-07 02:20 | NUR ---
PT RESTING WITH EYES CLOSED ON R SIDE. RESP EVEN AND REGULAR. SR UP X2, CALL LIGHT WITHIN REACH.
[2019-09-07 02:47] LABS: CALC OSMOLALITY 281 mosm/kg (275-300); CALCIUM 7.9 mg/dL (8.5-10.1); CARBON DIOXIDE 30.7 mmol/L (21.0-32.0); CHLORIDE - SERUM 103 mmol/L (98-107); CKMB 1.9 U/L (0.0-3.6); CREATINE KINASE 80 UL (21-215); CREATININE - SERUM 0.8 mg/dL (0.6-1.3); GLUCOSE 98 mg/dL (74-106); POTASSIUM - SERUM 3.9 mmol/L (3.5-5.1); SODIUM 139 mmol/L (136-145); UREA NITROGEN 23 mg/dL (7-18); eGFR NON AFRICAN AMERICAN 76 mL/min (90-120)
[2019-09-07 02:48] LABS: TROPONIN-I 2.883 ng/mL (0.000-0.060)
[2019-09-07 03:14] LABS: BASOPHILS 0.4 % (0-2); EOSINOPHILS 3.5 % (0-7); HEMATOCRIT 33.1 % (36.0-48.0); IMMATURE GRANULOCYTES 0.3 % (0-5); LYMPHOCYTES 12.2 % (15-50); MCH 31.3 pg (26.0-34.0); MCHC 33.2 g/dL (31.0-37.0); MEAN PLATELET VOLUME 10.7 fL (7.4-10.4); NEUTROPHILS 72.6 % (40-80); PLATELET COUNT 345 10x3/uL (130-400); RBC 3.52 10x6/uL (4.00-5.40); RDW 13.1 % (11.5-14.5)
[2019-09-07 03:15] LABS: WBC 7.1 10x3/uL (4.8-10.8)
--- NOTE | 2019-09-07 04:18 | NUR ---
HIBICLENS BATH DONE, BED LINENS CHANGED. R GROIN CLIPPED PER ORDERS. PT TOLERATED PROCEDURE WELL. NORCO PO GIVEN FOR C/O FIBROMYALGIA PAIN. SR UP X2, CALL LIGHT WITHIN REACH.
[2019-09-07 05:04] VITALS: BP 96/51
--- NOTE | 2019-09-07 06:18 | NUR ---
VSS THROUGHOUT NIGHT. SR PER CM. PT STATES NORCO CONTROLS HER FIBROMYALGIA PAIN. NEEDSM ET; WILL CONTINUE TO MONITOR.
--- NOTE | 2019-09-07 07:56 | NUR ---
PRE-OPS GIVEN. LEAVING FOR STORE CASHIER BY BED.
[2019-09-07 08:34] VITALS: BP 95/50
--- NOTE | 2019-09-07 09:15 | NUR ---
BACK FROM TRACK MAINTAINER. VS WNL. LEFT GROIN STABLE WITHOUT BLEEDING OR HEMATOMA NOTED. WILL MONITOR.
[2019-09-07 12:00] VITALS: BP 88/41
--- NOTE | 2019-09-07 13:01 | NUR ---
BED REST UP. GROIN STABLE.
[2019-09-07 15:45] VITALS: BP 89/53
--- NOTE | 2019-09-07 19:20 | NUR ---
RECEIVED BEDSIDE REPORT. PATIENT IS ALERT AND ORIENTED, RESTING COMFORTABLY IN BED. RESPIRATIONS ARE EVEN AND UNLABORED. NO S/S OF DISTRESS. NO C/OPAIN. CALL IGHT WITHIN REACH. WILL CPOC.
[2019-09-07 20:48] VITALS: BP 82/40
[2019-09-08 00:41] VITALS: BP 81/40
[2019-09-08 03:53] VITALS: BP 105/61
[2019-09-08 09:31] VITALS: BP 110/56
[2019-09-08] MEDS ORDERED: K-TAB10 MEQ PO (13:24)
[2019-09-08] MEDS ORDERED: FUROSEMIDE20 MG PO (13:25)
[2019-09-08 13:43] VITALS: BP 119/65
--- NOTE | 2019-09-08 13:55 | NUR ---
02 SAT DECREASED TO 86% ON RA AT REST. CM NOTIFIED. DR. BEATTY PAGED.
[2019-09-08 17:42] VITALS: BP 99/57
--- NOTE | 2019-09-08 19:24 | NUR ---
RECEIVED BEDSIDE REPORT. PATIENT IS ALERT AND ORIENTED, RESTING COMFORTABLY IN BED. RESPIRATIONS ARE EVEN AND UNLABORED. NO S/S OF DISTRESS. NO C/OPAIN. CALL LIGHT WITHIN REACH. WILL CPOC.
[2019-09-08 20:39] VITALS: BP 92/45
[2019-09-09 00:37] VITALS: BP 96/50
[2019-09-09 06:01] VITALS: BP 96/48
[2019-09-09 06:47] LABS: BASOPHILS 0.3 % (0-2); EOSINOPHILS 4.7 % (0-7); HEMATOCRIT 36.8 % (36.0-48.0); HEMOGLOBIN 12.3 g/dL (12-16); IMMATURE GRANULOCYTES 0.2 % (0-5); LYMPHOCYTES 12.7 % (15-50); MCH 31.8 pg (26.0-34.0); MCHC 33.4 g/dL (31.0-37.0); MCV 95.1 fL (80.0-100.0); MEAN PLATELET VOLUME 10.5 fL (7.4-10.4); MONOCYTES 10.7 % (2-11); NEUTROPHILS 71.4 % (40-80); PLATELET COUNT 397 10x3/uL (130-400); RBC 3.87 10x6/uL (4.00-5.40); RDW 13.1 % (11.5-14.5); WBC 10.8 10x3/uL (4.8-10.8)
[2019-09-09 07:24] LABS: ANION GAP 12.6 mmol/L (8-16); CARBON DIOXIDE 33.3 mmol/L (21.0-32.0); CREATININE - SERUM 0.9 mg/dL (0.6-1.3); POTASSIUM - SERUM 3.9 mmol/L (3.5-5.1)
[2019-09-09 07:41] VITALS: BP 92/49
[2019-09-09 12:01] VITALS: BP 112/59
--- NOTE | 2019-09-09 12:45 | NUR ---
02 SATS 94% ON RA AFTER AMBULATING HALLWAY. 02 DCD.
--- NOTE | 2019-09-09 15:07 | NUR ---
IV AND TELEMETRY DCD. DC PLANS GIVEN. UNDERSTANDING VOICED. ESCORTED TO CAR BY W/C.
--- NOTE | 2019-09-09 15:07 | MORECARE ---
CASE MANAGEMENT DISCHARGE SUMMARY PATIENT: JALEN JAMIL TILA UNIT: [id number] ADM DATE: 09/06/19 AGE: 68 : 51 SEX: F ROOM/BED: D.0251 AUTHOR: JULIETTE,DOC PHYSICIAN: REFERRING PHYSICIAN: LETICIA BEATTY MD DATE OF SERVICE: 09/09/19 Discharge Plan Patient Name: JALEN JAMIL Facility: [facility]:[place] : 1950 Planned Disposition: Home with Home Health Anticipated Discharge Date: 09/09/19 Discharge Date: Expected LOS: 3 Initial Reviewer: [email or web address] Initial Review Date: 09/09/2019 Generated: 09/09/19 4:07 pm Comments DCP- Discharge Planning Updated by [email or web address]: Fidel Reyes on 09/09/19 2:[address] Patient Name: JALEN JAMIL Admission Status: ER Accout number: [id number] Admission Date: 09-06-2019 : 1950 Admission Diagnosis: Attending: LETICIA BEATTY Current LOS: 3 Anticipated DC Date: 09-09-2019 Planned Disposition: Home with Home Health Primary Insurance: [employer]OV[employer] PLANNED EXTERNAL PROVIDER: [facility] Discharge Planning Comments: CM MET WITH PT IN ROOM TO DISCUSS DISCHARGE PLANNING AND NEEDS. PT REPORTS LIVING AT HOME INDEPENDENTLY AND ALONE. PT HAS NO MEDICAL EQUIPMENT AND NO OUTSIDE SERVICES ASSISTING IN THE HOME. CM DISCUSSED AVAILABILITY OF HOME HEALTH, REHAB SERVICES AND MEDICAL EQUIPMENT. PT WOULD LIKE HOME [facility] FOR PHYSICAL THERAPY. PT REPORTS HER FRIEND CÉSAR WILL PICK HER UP FOR DISCHARGE HOME. IMPORTANT MESSAGE FROM MEDICARE PROVIDED AND EXPLAINED. CM DISCUSSED PROVIDERS FOR HOME HEALTH, WENT OVER PROVIDER LISTING. PT WANT[facility], CHOICE SIGNED. CM CALLED [facility] AT [phone], SPOKE TO LOUIS AND PROVIDED REFERRAL. CM FAXED REFERRAL AND DISCHARGE INFORMATION TO [facility] AT [phone] FOR NEW HOME HEALTH ADMIT. FLOW COORDINTOR NURSE NOTIFIED. Associate Editor: Fidel Reyes DCPIA - Discharge Planning Initial Assessment Updated by [id number]: Fidel Reyes on 09/09/19 3:00 pm * Is the patient Alert and Oriented? Yes * How many steps to enter\exit or inside your home? NONE * PCP DR. ANSARI * Pharmacy [facility] * Preadmission Environment Home Alone * ADLs Independent * Equipment None * Other Equipment NO MEDICAL EQUIPMENT PROVIDER PREFERENCE * List name and contact numbers for known caregivers / representatives who currently or will assist patient after discharge: CÉSAR MENEZES, SPENSER, * Verbal permission to speak to the caregivers and representatives has been obtained from the patient. N/A * Community resources currently utilized None * Please name any agencies selected above. NONE * Additional services required to return to the preadmission environment? No * Can the patient safely return to the preadmission environment? Yes * Has this patient been hospitalized within the prior 30 days at any hospital? No External Providers External Provider: [facility] Next Contact Date: 09/09/2019 Service Request Date: Service Type: Resolution: Reviewer: Comments: Patient Name: JALEN JAMIL Page [phone] at 1507 All edits/amendments must be made on the electronic document DICTATION DATE: 09/09/19 1507 MUSEUM SERVICE SCHEDULER: SINCERE 09/09/19 1507 RPT#: [id number] DC DATE: STATUS: ADM IN [facility] [address] [place] [address] END OF REPORT
--- NOTE | 2019-09-09 17:22 | MORECARE ---
CASE MANAGEMENT DISCHARGE SUMMARY PATIENT: JALEN JAMIL TILA UNIT: [id number] ADM DATE: 09/06/19 AGE: 68 : 51 SEX: F ROOM/BED: D.6733 AUTHOR: JULIETTE,DOC PHYSICIAN: REFERRING PHYSICIAN: LETICIA BEATTY MD DATE OF SERVICE: 09/09/19 Discharge Plan Patient Name: JALEN JAMIL Facility: [facility]:[place] : 1950 Planned Disposition: Home with Home Health Anticipated Discharge Date: 09/09/19 Discharge Date: 09/09/2019 Expected LOS: 3 Initial Reviewer: [email or web address] Initial Review Date: 09/09/2019 Generated: 09/09/19 6:21 pm Comments DCP- Discharge Planning Updated by [email or web address]: Fidel Mitchell on 09/09/19 4:[address] Patient Name: JALEN JAMIL Admission Status: ER Accout number: [id number] Admission Date: 09-06-2019 : 1950 Admission Diagnosis: Attending: LETICIA BEATTY Current LOS: 3 Anticipated DC Date: 09-09-2019 Planned Disposition: Home with Home Health Primary Insurance: [employer] PLANNED EXTERNAL PROVIDER: [facility] Discharge Planning Comments: CM MET WITH PT IN ROOM TO DISCUSS DISCHARGE PLANNING AND NEEDS. PT REPORTS LIVING AT HOME INDEPENDENTLY AND ALONE. PT HAS NO MEDICAL EQUIPMENT AND NO OUTSIDE SERVICES ASSISTING IN THE HOME. CM DISCUSSED AVAILABILITY OF HOME HEALTH, REHAB SERVICES AND MEDICAL EQUIPMENT. PT WOULD LIKE HOME [facility] FOR PHYSICAL THERAPY. PT REPORTS HER FRIEND CÉSAR WILL PICK HER UP FOR DISCHARGE HOME. IMPORTANT MESSAGE FROM MEDICARE PROVIDED AND EXPLAINED. CM DISCUSSED PROVIDERS FOR HOME HEALTH, WENT OVER PROVIDER LISTING. PT WANTS [facility] OR [facility], CHOICE SIGNED. CM CALLED [facility] AT [phone], SPOKE TO LOUIS AND PROVIDED REFERRAL. CM FAXED REFERRAL AND DISCHARGE INFORMATION TO [facility] AT [phone] FOR NEW HOME HEALTH ADMIT. FLOW COORDINTOR NURSE NOTIFIED. Thermometer Production Worker: Fidel Mitchell Appended by Fidel Mitchell on 09/09/2019 17:18 CDT: THE [facility] WAS NOT [facility] PREVIOUSLY NOTED IN ERROR. PT WAS REFERRED TO [facility] AT [facility], . REFERRAL WAS FAXED TO [facility] AT [phone]. FIDEL MITCHELL, CASE MANAGEMENT DCPIA - Discharge Planning Initial Assessment Updated by [id number]: Fidel Mitchell on 09/09/19 3:00 pm * Is the patient Alert and Oriented? Yes * How many steps to enter\exit or inside your home? NONE * PCP DR. ANSARI * Pharmacy [facility] * Preadmission Environment Home Alone * ADLs Independent * Equipment None * Other Equipment NO MEDICAL EQUIPMENT PROVIDER PREFERENCE * List name and contact numbers for known caregivers / representatives who currently or will assist patient after discharge: CÉSAR MENEZES, FRIEND, * Verbal permission to speak to the caregivers and representatives has been obtained from the patient. N/A * Community resources currently utilized None * Please name any agencies selected above. NONE * Additional services required to return to the preadmission environment? No * Can the patient safely return to the preadmission environment? Yes * Has this patient been hospitalized within the prior 30 days at any hospital? No External Providers External Provider: [facility] Next Contact Date: 09/09/2019 Service Request Date: Service Type: Resolution: Reviewer: Comments: Coverage Notice Reviewer: [email or web address] Jaimie Mitchell Notice Issued Date-Time: 09/09/2019 10:20 Notice Type: IM Discharge Notice Notice Delivered To: Patient Relationship to Patient: Electrical Designer Drafter Name: Delivery Method: HAND - Hand Delivered Tram Days: Prior Verbal Notification: Recipient Understood Notice: Yes Recipient Signature: Yes Med Rec Note Co-signed by Attending: Coverage Notice Comment: Reviewer: [email or web address] Jaimie Mitchell Notice Issued Date-Time: 09/09/2019 10:20 Notice Type: Patient Choice Letter Notice Delivered To: Patient Relationship to Patient: Electrical Designer Drafter Name: Delivery Method: HAND - Hand Delivered Tram Days: Prior Verbal Notification: Recipient Understood Notice: Yes Recipient Signature: Yes Med Rec Note Co-signed by Attending: Coverage Notice Comment: [facility] Last DP export: 09/09/19 2:07 p Patient Name: JALEN JAMIL Page 12333 at 1722 All edits/amendments must be made on the electronic document DICTATION DATE: 09/09/191720 PLANT TENDER: SINCERE 09/09/191720 RPT#: [id number] DC DATE:09/09/19 STATUS: DIS IN [facility] [address] [place] [address] END OF REPORT
== END 2019-09-09 15:11 | disposition home health service (06) | DRG 246 ==
LOC: D.ER 13:01 → D.M2 14:51
PROVIDERS: Emergency Medicine; Internal Medicine Interventional Cardiology; ADMIT Family Medicine; ATTEND Family Medicine
PROC: 4A023N7 Measurement of Cardiac Sampling and Pressure, Left Heart, Percutaneous Approach (ICD-10-PCS; 2019-09-07)
PROC: B2111ZZ Fluoroscopy of Multiple Coronary Arteries using Low Osmolar Contrast (ICD-10-PCS; 2019-09-07)
PROC: 4A033BC Measurement of Arterial Pressure, Coronary, Percutaneous Approach (ICD-10-PCS; 2019-09-07)
PROC: 027035Z Dilation of Coronary Artery, One Artery with Two Drug-eluting Intraluminal Devices, Percutaneous Approach (ICD-10-PCS; principal; 2019-09-07 07:45)
DX: I25.110 Atherosclerotic heart disease of native coronary artery with unstable angina pectoris (principal); I21.4 Non-ST elevation (NSTEMI) myocardial infarction; I50.40 Unspecified combined systolic (congestive) and diastolic (congestive) heart failure; E78.5 Hyperlipidemia, unspecified; M51.36 Other intervertebral disc degeneration, lumbar region; I11.0 Hypertensive heart disease with heart failure

== ENCOUNTER 2019-09-19 04:32 | Inpatient (IN) | payer OTHER, MEDICAID ==
[~2019-09-19] VITALS: Ht 165.1 cm; Wt 59.0 kg
[2019-09-19] VITALS (9 sets, daily range): BP systolic 73–98; BP diastolic 37–63; BMI 23.0
--- NOTE | ~2019-09-19 | HEMODYNAMI ---
PATIENT:JALEN JAMIL MEDICAL RECORD: [id number] : 52 [id number] ADMISSION DATE: 09/19/19 Generatedon:09/21/201910:12 Patient name: JALEN JAMIL Patient #: [id number] SSN: [id number] : 1950 Date of study: 09/21/2019 Page: Of Hemodynamic Procedure Report Patient Data Patient Demographics Procedure consent was obtained First Name: JALEN Gender: Female Last Name: OMERO : 1950 [facility] Initial: TILA Age: 68 year(s) Patient #: [id number] Race: SSN: [id number] Additional ID: [id number] Contact details [address]: [address] [place] [address] [address] State: [place] City: [place] Zip code: [address] Past Medical History Allergies Allergen Reaction Date Comments Reported Other allergy 09/21/2019 NKDA Admission Admission Data Admission Date: 09/19/2019 Admission Time: 6:59 Arrival Date: 09/21/2019 Arrival Time: 0:00 Room #: D.2116 Insurance Payor: Medicare [facility] #: [id number] Height (in.): 64.96 BSA: 1.69 (m2) Height (cm.): 165 BMI: 23.14 (kg/m2) Weight (lbs.): 138.89 Weight (kg.): 63 Lab Results Lab Result Date: 09/21/2019 Lab Result Time: 0:00 Biochemistry Name Units Result Min Max BUN mg/dl 17 --(---*)-- 7 18 CK-MB ng/ml 11.4 --(----)-* 0 3.6 Creatinine mg/dl 1.2 --(---*)-- 0.6 1.3 eGFR ml/min 47 *-(----)-- 90 120 NONAFRICAN CBC Name Units Result Min Max Hematocrit % 30.8 *-(----)-- 42 54 Hemoglobin g/dl 9.9 *-(----)-- 13.5 17.5 Procedure Procedure Types Cath Procedure Diagnostic Procedure C [facility] w/Coronaries Procedure Description Procedure Date Procedure Date: 09/21/2019 Procedure Start Time: 9:59 Procedure End Time: 10:10 Procedure Staff Name Function Francisco Mills MD Performing Physician Emerita Marshall RT Monitor Elena Lopez RT Scrub Ap Lam RN Nurse Procedure Data Cath Procedure Fluoroscopy Diagnostic fluoroscopy Total fluoroscopy Time: 1.9 time: 1.9 min min Diagnostic fluoroscopy Total fluoroscopy dose: 297 dose: 297 mGy mGy Contrast Material Contrast Material Type Amount (ml) Isovue 370 46 Entry Location Entry Primary Successful Side Size Upsize Upsize Entry Closure Succes sful Closure Location (Fr) 1 (Fr) 2 (Fr) Remarks Device Remarks Femoral Right 5 Fr Exoseal artery Estimated blood loss: 5 ml Diagnostic catheters Device Type Used For End Catheter Placement MULTIPACK JL 4.0 5Fr Procedure catheter MULTIPACK 3DRC 5Fr Procedure catheter MULTIPACK Pigtail 5 Fr Procedure catheter Procedure Complications No complications Procedure Medications Medication Administration Route Dosage 0.9% NaCl I.V. 10 ml/hr Oxygen NC 5 l/min Heparin Flush Bag added to field 2 bags (1000units/500ml NS) Lidocaine 2% added to field 20 Versed I.V. 1 mg Fentanyl I.V. 50 mcg Hemodynamics Rest BSA: 1.69 (m2) HGB: 9.9 (g/dl) O2 Consumption: Estimated: 177.96 (ml/min) O2 Con sumption indexed: Estimated:105.3 (ml/min/m) Heart Rate: 103 (bpm) Pressure Samples Time Site Value (mmHg) Purpose Heart Use Rate(bpm) 10:06 LV 134/-8,25 Snapshot 103 Snapshots Pre Cath Intra NCS Post Cath Vital Signs Time Heart Resp SPO2 etCO2 NIBP (mmHg) Rhythm Pain Sedation Rate (ipm) (%) (mmHg) Status Level (bpm) 9:56:47 107 27 89 0 155/120(135) NSR 0 (11) 9(A) , No pain 10:01:02 104 29 87 0 150/112(127) NSR 0 (11) 9(A) , No pain 10:05:13 105 22 88 0 148/99(116) NSR 0 (11) 9(A) , No pain 10:09:23 100 27 87 0 145/110(123) NSR 0 (11) 9(A) , No pain Medications Time Medication Route Dose Verified Delivered Reason Notes Effec tiveness by by 9:54:31 0.9% NaCl I.V. 10 Ap Ap Per ml/hr Genaro Lam physician RN RN 9:54:48 Oxygen NC 5 Ap Ap for low 02 l/min Genaro Lam sats RN RN 9:55:02 Heparin Flush added 2 Ap Ap used for Bag to bags Fiorellaigan Genaro procedure (1000units/500ml field RN RN NS) 9:55:13 Lidocaine 2% added 20ml Ap Ap for local to vial Lorigan Lorigan anesthetic field RN RN 9:55:30 Versed I.V. 1 mg Ap Ap for Lorigan Lorigan sedation RN RN 9:55:39 Fentanyl I.V. 50 Ap Ap for mcg Lorigan Lorigan sedation RN lockstitch shoulder joiner Log Time Note 9:29:55 Informed consent obtained and on chart 9:30:58 Arrival Date: 09/21/2019 12:00:00 AM 9:31:18 Insurance Payor : Medicare 9:31:24 Patient Height : 64.96 inches 9:31:29 Patient Weight : 138.89 lbs 9:34:29 Lab Result : CK-MB 11.4 ng/ml 9:34:29 Lab Result : Creatinine 1.2 mg/dl 9:34:29 Lab Result : BUN 17 mg/dl 9:34:29 Lab Result : eGFR NONAFRICAN 47 ml/min 9:34:29 Lab Result : Hematocrit 30.8 % 9:34:29 Lab Result : Hemoglobin 9.9 g/dl 9:35:51 Procedure Status Urgent Heart Cath (IP). 9:35:54 Ap Lam RN sent for patient. Start room use. 9:36:05 Time tracking: Regular hours (M-F 7:00 - 5:00) 9:36:13 Plan of Care:Hemodynamics will remain stable., Cardiac rhythm will remain stable., Comfort level will be maintained., Respiratory function will remain adequate., Patient/ family verbilizes understanding of procedure., Procedure tolerated without complication., Recovers from procedure without complications.. 9:36:42 Patient allergic to Other allergyNKDA 9:36:58 ACC Patient presents with Stable Angina CCS Anginal Class 3--Marked limitation of physical activity, angina occurs with ordinary activity.. 9:39:07 Risk of Mortality: 3.9 9:39:12 Risk of blood transfusion: 15.4 9:39:17 Risk of SUSSY: 3.4 9:41:43 Patient received from Med II to CCL 1 Alert and oriented. Tansferred to table in Supine position. 9:41:44 Warm blankets applied, and jeison hugger turned on for patient comfort. 9:41:45 Correct patient and procedure confirmed by team. 9:41:45 ECG and BP/O2 sat monitors applied to patient. 9:52:07 Pre-procedure instructions explained to patient. 9:52:07 Pre-op teaching completed and patient verbalized understanding. 9:52:09 Family unavailable. 9:52:11 Is the patient allergic to Iodine/contrast media? No. 9:52:15 Patient diabetic? No. 9:52:17 If diabetic: On Metformin? N/A 9:52:19 Patient not . Patient is over age 55. 9:52:20 ----Pre-sedation anethsthesia assessment.---- 9:52:22 Previous problem with sedation/anesthesia? No ? 9:52:24 Snore? Yes 9:52:25 Sleep apnea? No 9:52:26 Deviated septum? No 9:52:28 Opens mouth fully? Yes 9:52:29 Sticks out tongue? Yes 9:52:32 Airway obstruction? Yes CHF,COPD 9:52:35 Dentures? No ? 9:52:37 Pre procedure: right dorsailis pedis pulse 1+ Palpable, but thready & weak; easily obliterated 9:52:46 Patient pain scale 0/10 DIFFICULTY BREATHING. 9:52:56 IV patent on arrival in left antecubital with 0.9% NaCl at KVO. 9:53:01 Lab results completed and on chart. 9:53:06 Right groin area was prepped with chlora-prep and draped in sterile fashion 9:53:07 Alarms reviewed by R. N. 9:53:07 Sharps counted by scrub and verified by R.N. 9:53:10 Use device set Femoral Dx 9:53:12 ACIST Syringe (70022) opened to sterile field. 9:53:12 Bag Decanter (2002S) opened to sterile field. 9:53:13 Medline Cath Pack ([id number]) opened to sterile field. 9:53:14 ACIST Hand Control (22146) opened to sterile field. 9:53:15 ACIST Manifold (98344) opened to sterile field. 9:53:17 DIAGNOSTIC Multipack 5Fr catheter set ([id number]) opened to sterile field. 9:53:20 SHEATH 5FR Verdigre (IGH877) opened to sterile field. 9:53:20 EMERALD Guide Wire (080-078) opened to sterile field. 9:53:49 --------ALL STOP TIME OUT------ 9:53:50 Final Timeout: patient, procedure, and site verified with staff and physician. All members of the team are in agreement. 9:53:51 Right groin site verified by team. 9:53:54 Fire Safety Assessment: A--An alcohol-based skin anteseptic being used preoperatively., C--Open oxygen or nitrous oxide is being used., D--An ESU, laser, or fiber-optic light is being used. 9:53:58 Physical assessment completed. ASA score P 2 - A patient with mild systemic disease as per Francisco Mills MD. 9:54:05 3a) 45-59 Moderately reduced kidney function. 9:54:08 Maximum allowable contrast dose (3.7 X eGFR X 0.75)130 ml. 9:54:12 Sedation plan: IV Moderate Sedation Medication:Versed, Fentanyl 9:54:31 0.9% NaCl 10 ml/hr I.V. was administered by Ap Lam RN; Per physician; Verbal order read back and verified. 9:54:48 Rhythm: sinus rhythm 9:54:48 Oxygen 5 l/min NC was administered by Ap Lam RN; for low 02 sats; Verbal order read back and verified. 9:55:02 Heparin Flush Bag (1000units/500ml NS) 2 bags added to field was administered by Ap Lam RN; used for procedure; Verbal order read back and verified. 9:55:13 Lidocaine 2% 20ml vial added to field was administered by Ap Lam RN; for local anesthetic; Verbal order read back and verified. 9:55:30 Versed 1 mg I.V. was administered by Ap Lam RN; for sedation; Verbal order read back and verified. 9:55:39 Fentanyl 50 mcg I.V. was administered by Ap Lam RN; for sedation; Verbal order read back and verified. 9:55:42 Vital chart was started 9:59:23 Procedure started. 9:59:23 Full Disclosure recording started 9:59:45 Local anesthetic to right femoral artery with Lidocaine 2% by Francisco Mills MD.INITIAL ACCESS ONLY 10:00:52 A 5 Fr sheath was inserted into the Right Femoral artery 10:01:06 A MULTIPACK JL 4.0 5Fr catheter was advanced over the wire and used for Procedure. 10:02:00 LCA angiography performed. 10:02:07 Injector settings: Ml/sec: 3, Volume: 6, 10:03:19 Catheter removed. 10:03:45 A MULTIPACK 3DRC 5Fr catheter was advanced over the wire and used for Procedure. 10:04:29 RCA angiography performed. 10:04:32 Injector settings: Ml/sec: 3, Volume: 6, 10:04:38 Catheter removed. 10:05:11 A MULTIPACK Pigtail 5 Fr catheter was advanced over the wire and used for Procedure. 10:05:22 LV gram done using PERRY 10:06:20 LV hemodynamics recorded. 10:06:57 EF : 20 % 10:07:02 Injector settings: Ml/sec: 5, Volume: 15, 10:07:13 Catheter removed. 10:07:16 EXOSEAL 5Fr (EX500) opened to sterile field. 10:07:33 Sheath removed intact; hemostasis achieved with Exoseal to the Right Femoral artery. 10:07:45 Procedure ended.(Physican Out) 10:07:58 Fluoroscopy time 01.90 minutes. 10:08:01 Flurop Dose total: 297 10:08:01 Fluoroscopy dose: 297 mGy 10:08:06 Dose Area Product 87508 mGy/cm. 10:08:10 Contrast amount:Isovue 370 46ml. 10:08:13 Maximum allowable dose exceeded? No. 10:08:14 Sharps counted by scrub and verified by R.N. 10:08:17 Post-op/insertion site Right Femoral artery dressed using a 4 x 4 and Tegaderm. 10:08:22 Post right femoral artery:stable, soft, clean and dry 10:08:24 Post Procedure Pulses reassessed and unchanged 10:08:27 Post procedure: right dorsailis pedis pulse 1+ Palpable, but thready & weak; easily obliterated. 10:08:30 Post-procedure physical assessment completed. ASA score P 2 - A patient with mild systemic disease as per Francisco Mills MD. 10:08:33 Post procedure rhythm: unchanged. 10:09:23 Estimated blood loss: 5 ml 10:09:24 Post procedure instruction explained to patient.Patient verbalizes understanding. 10:09:24 Patient needs reinforcement of post procedure teaching. 10:09:59 Procedure and supply charges have been captured, reviewed, submitted and are correct. 10:10:05 Procedure Complication : No complications 10:10:24 [facility] Findings: mild to moderate CAD (<70%) 10:10:25 Operative report dictated upon procedure completion. 10:10:28 Report given to Med II. 10:10:30 See physician's report for complete and final results. 10:10:36 Procedure ended. 10:10:36 Full Disclosure recording stopped 10:11:31 Vital chart was stopped 10:11:34 End room use (Document Last) 10:11:46 End room use (Document Last) 10:12:01 End room use (Document Last) Device Usage Item Name Manufacture Quantity Catalog Hospital Part Current Minimal L ot# / Number Charge Number Stock Stock Serial# Code ACIST Acist 1 01701 [id number] 085361 166204 20 Syringe Medical (28252) Systems Inc Bag Microtek 1 352592 43519 541497 5 Decanter Medical Inc. () Medline Medline 1 [id number] 462662 43846 249107 5 Cath Pack ([id number]) ACIST Hand Acist 1 61967 594640 296672 477132 5 Control Medical (92699) Systems Inc ACIST Acist 1 55592 244753 311298 909289 5 Manifold Medical (37402) Systems Inc DIAGNOSTIC Cardinal 1 FI7995 358596 06133 799976 30 [facility] Hippflow 5Fr catheter set (AA3358) SHEATH 5FR Terumo 1 SEV254 391491 555813 732454 5 Verdigre (LWB781) EMERALD Cardinal 1 575-179 133425 317044 242416 5 Guide Wire Health (986-247) MULTIPACK Cardinal 1 940845 5 JL 4.0 5Fr Health catheter MULTIPACK Cardinal 1 454632 5 3DRC 5Fr Health catheter MULTIPACK Cardinal 1 947529 5 Pigtail 5 Health Fr catheter EXOSEAL 5Fr Cardinal 1 EX500 169794 511596 257859 10 (EX500) Health Signature Audit [place] Stage Time Signature Unsigned Intra-Procedure 09/21/2019 Emerita Marshall 10:11:46 AM RT(R) Intra-Procedure 09/21/2019 Ap 10:12:01 AM Genaro MENDOZA Intra-Procedure 09/21/2019 Francisco Bettencourt 10:12:18 AM Saad [facility] [address] [place] [address]
[~2019-09-19 04:32] MED LIST changes: +FUROSEMIDE20 MG PO; +K-TAB10 MEQ PO
[2019-09-19 05:26] LABS: BASOPHILS 0.4 % (0-2); EOSINOPHILS 0.8 % (0-7); HEMATOCRIT 36.7 % (36.0-48.0); HEMOGLOBIN 11.5 g/dL (12-16); IMMATURE GRANULOCYTES 0.4 % (0-5); LYMPHOCYTES 11.2 % (15-50); MCH 31.3 pg (26.0-34.0); MCHC 31.3 g/dL (31.0-37.0); MCV 99.7 fL (80.0-100.0); MEAN PLATELET VOLUME 10.6 fL (7.4-10.4); MONOCYTES 5.8 % (2-11); NEUTROPHILS 81.4 % (40-80); PLATELET COUNT 423 10x3/uL (130-400); RBC 3.68 10x6/uL (4.00-5.40); RDW 13.5 % (11.5-14.5)
[2019-09-19 05:59] LABS: CALC OSMOLALITY 277 mosm/kg (275-300); CALCIUM 8.7 mg/dL (8.5-10.1); CARBON DIOXIDE 27.8 mmol/L (21.0-32.0); CHLORIDE - SERUM 101 mmol/L (98-107); CREATININE - SERUM 1.2 mg/dL (0.6-1.3); GLUCOSE 143 mg/dL (74-106); POTASSIUM - SERUM 4.4 mmol/L (3.5-5.1); SODIUM 137 mmol/L (136-145); UREA NITROGEN 17 mg/dL (7-18); eGFR NON AFRICAN AMERICAN 47 mL/min (90-120)
[2019-09-19 06:22] LABS: ALBUMIN 2.8 g/dL (3.4-5.0); ALKALINE PHOSPHATASE 116 U/L (30-120); ALT (SGPT) 15 U/L (10-68); BILIRUBIN - TOTAL 0.45 mg/dL (0.2-1.3); CKMB 2.7 U/L (0.0-3.6); CREATINE KINASE 74 UL (21-215); MAGNESIUM - SERUM 1.8 mg/dL (1.8-2.4); PRO BNP 7181 pg/mL (0-125); PROTEIN - SERUM 6.8 g/dL (6.4-8.2)
[2019-09-19 06:28] LABS: TROPONIN-I 1.132 ng/mL (0.000-0.060)
--- NOTE | 2019-09-19 09:19 | NUR ---
VANC INFUSION COMPLETE
--- NOTE | 2019-09-19 09:25 | NUR ---
CALLED AND SPOKE WITH DR. BEATTY CONCERNING PATIENT HYPOTENSION, HE SAID TO CONTINUE TO MONITOR GAVE AN ORDER FOR NARCAN AND HE WOULD BE IN SHORTLY.
--- NOTE | 2019-09-19 09:43 | NUR ---
CALLED THE FLOOR TO INFORM CHARLI OF THE DELAY OF PATIENT COMING TO THE ROOM, PATIENT NOW TRANSPORTED.
--- NOTE | 2019-09-19 09:55 | NUR ---
RECEIVED PT TO ROOM 2115 VIA STRETCHER FROM ER [id number] RESP UNLABORED ON 4 LPM NC SKIN W/D COLOR WNL DENIES ANY PAIN OR DISCOMFORT AT THIS TIME TELEMETRY SR RATE 80 WILL CONTINUE TO MONITOR
--- NOTE | 2019-09-19 17:00 | NUR ---
REPORT RECEIVED FROM CHARLI MENDOZA AND PATIENT CARE ASSUMED. PATIENT LAYING IN BED ON LT SIDE AWAKE AND TALKING ON THE PHONE. PATIENT DENIES ANY NEEDS OR PAIN. WILL CONTINUE WITH PLAN OF CARE. SR UP X 2 BED IN LOW POSITION AND CALL LIGHT IN REACH.
--- NOTE | 2019-09-19 19:45 | NUR ---
REPORT RECIEVED AND INITIAL ROUNDS COMPLETED. PT RESTING IN BED WITH EYES CLOSED. RESPS EVEN/NONLABORED. ROUSES TO VERBAL STIMULI BUT IS VERY LETHARGIC. SR PER TELEMETRY. CPOC.
--- NOTE | 2019-09-19 22:00 | NUR ---
PT SLEEPING DEEPLY WITH NO SIGNS OF DISTRESS. BP REMAINING LOW. HOLDING ALL BEDTIME MEDS UNTIL PT AWAKENS. IVF INFUSING AT [facility]. ABT ORDERED.
--- NOTE | 2019-09-20 00:01 | NUR ---
PT AWAKENED AND WAS AMAZED THAT SHE HAD SLEPT ALL DAY AND EVEN THOUGHT THAT SHE HAD BEEN FORGOTTEN ABOUT. NO RECOLLECTION OF VS BEING TAKEN. SUPERVISED PT UP TO BATHROOM TO VOID. DENIES PAIN OR DISCOMFORT. REVIEWED WITH PATIENT THAT MEDS WERE HELD THIS PM DUE TO LOW BP AND HER LETHARGY. PT STATES SHE DOES NOT NORMALLY TAKE THE VALIUM BID, JUST VERY INFREQUENTLY PRN. WILL CHANGE ORDER. GAVE LYRICA AND LIPITOR AT THIS TIME.
[2019-09-20 04:00] VITALS: BP 75/49
[2019-09-20 05:30] LABS: BASOPHILS 0 % (0-2); EOSINOPHILS 0 % (0-7); HEMATOCRIT 30.8 % (36.0-48.0); HEMOGLOBIN 9.9 g/dL (12-16); IMMATURE GRANULOCYTES 0.2 % (0-5); LYMPHOCYTES 6.1 % (15-50); MCH 30.9 pg (26.0-34.0); MCHC 32.1 g/dL (31.0-37.0); MEAN PLATELET VOLUME 10.6 fL (7.4-10.4); MONOCYTES 2.7 % (2-11); RDW 13.5 % (11.5-14.5); WBC 10.9 10x3/uL (4.8-10.8)
[2019-09-20 05:31] LABS: MCV 96.3 fL (80.0-100.0); PLATELET COUNT 338 10x3/uL (130-400)
[2019-09-20 06:07] LABS: ALBUMIN 2.3 g/dL (3.4-5.0); ALKALINE PHOSPHATASE 83 U/L (30-120); ALT (SGPT) 15 U/L (10-68); BILIRUBIN - TOTAL 0.47 mg/dL (0.2-1.3); CALC OSMOLALITY 285 mosm/kg (275-300); CALCIUM 8.3 mg/dL (8.5-10.1); CHLORIDE - SERUM 104 mmol/L (98-107); CKMB 11.4 U/L (0.0-3.6); CREATINE KINASE 182 UL (21-215); GLUCOSE 134 mg/dL (74-106); POTASSIUM - SERUM 3.6 mmol/L (3.5-5.1); PROTEIN - SERUM 5.8 g/dL (6.4-8.2); SODIUM 141 mmol/L (136-145); UREA NITROGEN 21 mg/dL (7-18); eGFR NON AFRICAN AMERICAN 58 mL/min (90-120)
[2019-09-20 06:09] LABS: TROPONIN-I 14.289 ng/mL (0.000-0.060)
--- NOTE | 2019-09-20 07:57 | NUR ---
NOTIFIED DR SANTIAGO OF ELEVATED AM TROPONIN OF 14.9. NO NEW ORDERS GIVEN.
[2019-09-20 08:23] VITALS: BP 98/61
--- NOTE | 2019-09-20 08:55 | NUR ---
AM MEDS GIVEN AT THIS TIME. PT A/O X4, RESP EVEN AND NONLABORED ON 3L. LT WRIST INFUSING VANCOMYCIN AT THIS TIME. PT STATES THAT HER FRIEND WILL BE COMING TO [place] HER PURSE AND OTHER BELONGINGS.
[2019-09-20 10:26] LABS: CHOL - HDL RATIO 3.1 ratio (2.3-4.1); LDL-HDL RATIO 1.8 ratio (1.5-3.5)
[2019-09-20 12:19] VITALS: BP 102/59
[2019-09-20 16:33] VITALS: BP 97/62
--- NOTE | 2019-09-20 19:40 | NUR ---
REPORT RECIEVED AND INITIAL ROUNDS COMPLETED. PT RESTING IN BED. IVF/ABT CURRENTLY INFUSING. NONLABORED RESPIRATIONS ON O2 @ 3L/NC. SR PER TELEMETRY. CALL LIGHT IN REACH. CPOC.
[2019-09-20 20:00] VITALS: BP 92/57
--- NOTE | 2019-09-21 02:39 | NUR ---
RESTING IN BED. NPO FOR AM HEART CATH PER DR SANTIAGO IN AM. IVF INFUSING AT KVO. CPOC.
[2019-09-21 04:00] VITALS: BP 125/74
--- NOTE | 2019-09-21 06:08 | NUR ---
HAS BEEN NPO SINCE MIDNIGHT. PREOP CARE PROVIDED FOR SCHEDULED AM CATH. CPOC.
[2019-09-21 08:40] VITALS: BP 113/69
--- NOTE | 2019-09-21 09:40 | NUR ---
PRE-OPS GIVEN. TO SYSTEMS MECHANIC BY BED.
--- NOTE | 2019-09-21 09:45 | NUR ---
BACK FROM ACCOUNTS PAYABLE LEAD. 02 SATS87% ON 6L NC. RESP NOTIFIED. UD GIVEN. 02 CHANGED TO 10L HIGH FLOW WITHS SATS INCREASED TO 97%. GROIN STABLE WITHOUT BLEEDING OR HEMATOMA NOTED. WILL MONITOR.
--- NOTE | 2019-09-21 11:48 | NUR ---
O2 DECREASED TO 5L WITH SATS 96%. WILL CONT. PLAN OF CARE.
[2019-09-21 11:54] VITALS: BP 95/55
--- NOTE | 2019-09-21 12:16 | CN ---
PATIENT NAME:JALEN JAMIL MEDICAL RECORD: [id number] : 52 LOCATION:D.M2 D.2116 ADMIT DATE: 09/19/19 ACCOUNT: [id number] CONSULTING PHYSICIAN: FARHEEN SANTIAGO MD REFERRING PHYSICIAN: LETICIA BEATTY MD DATE OF CONSULTATION: 09/19/2019 HISTORY OF PRESENT ILLNESS: A 68-year-old female with a known history of coronary artery disease status post NSTEMI back late August with intervention of LAD later on, EF at that time 30%, admitted with marked dyspnea over last 2-3 days. Finally, had jake orthopnea, presented to the ER, was found to have possible upper lobe infiltrate as well as bilateral small pleural effusions with some consolidation. Blood pressure is somewhat low at baseline, making attempts at cardiomyopathic medications somewhat challenging. We are asked to see her concerning her cardiovascular status. PAST MEDICAL HISTORY: Includes; 1. History of obstructive pulmonary disease. 2. Hypertension. 3. Hyperlipidemia. 4. Cardiomyopathy as described above. ALLERGIES: None known. MEDICATIONS: Typically include Plavix 75 every day, Lipitor 20 mg p.o. every day, aspirin 81 every day, Valium 5 mg b.i.d., Prozac 20 every day, Shacklefords 10/325 one every 4 hours p.r.n., Lasix 20 mg p.o. every day, potassium 10 mEq p.o. every day. SOCIAL HISTORY: Smokes about a pack a day. Occasional glass of wine. No set exercise program. REVIEW OF SYSTEMS: The patient reports easy bruising but reports no swollen glands. The patient reports no fever, no night sweats, no significant weight gain, no significant weight loss. No significant exercise tolerance. The patient reports no dry eyes, no irritation, no vision change. Patient reports no difficulty hearing and no ear pain. Patient reports no frequent nose bleeds or nose and sinus problems. Patient reports on arm pain on exertion. No shortness of breath while lying down. No history of heart murmur. Patient reports no cough, no wheezing or coughing up blood. Patient reports no abdominal pain, no vomiting. Normal appetite. No diarrhea and not vomiting blood. No nausea and no constipation. Patient reports no incontinence. No difficulty urinating. No hematuria. No increased frequency. Patient reports no muscle aches. No weakness, no arthralgias, no back pain. No swelling of the extremities. Patient reports no abnormal mole, no jaundice, no rashes. Reports no loss of consciousness. No weakness and no numbness. No seizures, dizziness, or headaches. The patient reports no depression, no sleep disturbance, feeling safe in a relationship and no alcohol abuse. Patient reports on fatigue. Reports no runny nose or sinus pressure. No itching, no hives, and no frequent sneezing. PHYSICAL EXAMINATION: GENERAL: Pleasant female in no acute distress, appears stated age, comfortable on oxygen. VITAL SIGNS: Blood pressure 97/63, pulse 80 and regular. CONSULT REPORT [id number] JAMILJALEN HEENT: Normocephalic and atraumatic. NECK: No bruits noted. HEART: Regular, probable S3 gallop is noted. LUNGS: Decreased breath sounds in both bases with prolonged expiratory phase. ABDOMEN: Soft, nontender. EXTREMITIES: Pulses are preserved, 1+. There is trace edema. DIAGNOSTIC DATA: EKG shows nonspecific ST-T changes or change from previous. IMPRESSION AND PLAN: Volume overload with questionable infectious process on chest x-ray and CT. We will repeat echocardiographic study to assess left ventricular function a month out from an myocardial infarction. Additionally, add Aldactone, I hope she will tolerate this without orthostasis, etc. Further recommendations based on the above. TRANSINT:[id number] Voice Confirmation ID: [id number] DOCUMENT ID: [id number] FARHEEN SANTIAGO MD at 1216 CC: [id number] DICTATION DATE: 09/19/19 1123 WOOL MIXER: 09/19/19 1523 [facility] [place] [address] [place] [address]
--- NOTE | 2019-09-21 12:16 | EC ---
PATIENT:JALEN JAMIL DATE OF SERVICE: 09/19/19 SEX: F MEDICAL RECORD: [id number] DATE OF : 52 LOCATION:D.M2 D.211 AGE OF PATIENT: 68 ADMISSION DATE: 09/19/19 REFERRING PHYSICIAN: INTERPRETING PHYSICIAN: FARHEEN SANTIAGO MD ECHOCARDIOGRAM REPORT ECHO CHARGES 5 ECHO LIMITED Date: 09/19/19 CLINICAL DIAGNOSIS: CHF/ASSESS EF ECHOCARDIOGRAPHIC MEASUREMENTS (adult normal given) AC root (d.<3.7cm) cm LV Septum d (<1.2 cm> cm Valve Excursion cm LV Septum (systole) cm Left Atria (s.<4.0cm> cm LVPW d(<1.2cm) cm RV (d.<2.3cm) cm LVPW (sytole) cm LV diastole(<5.6CM) cm MV E-F(>70mm/sec) cm LV systole cm LVOT Diameter cm MV exc.(>10mm) cm Est.ejection fraction (50-75%) % DOPPLER: LVIT cm/sec A cm/sec E cm/sec LA cm/sec RVSP 53 mmHg LVOT cm/sec AOP1/2T m/s Asc. Ao cm/sec RVOT cm/sec RA cm/sec PA cm/sec AV Gradient Peak mmHg AV Mean mmHg AV Area cm MV Gradient Peak mmHg MV Mean mmHg MV Area cm COMMENTS: Cable Rigger: Candace VIDAL Sr Technical Sales Consultant: 3 Dr. Robbins TAPE# PACS Pericardial Effusion N DATE OF SERVICE: Adequate 2D, color flow imaging, spectral Doppler, and M-Mode. Gross LVH appears present. LV internal dimensions were normal. LV appears to be globally hypokinetic with reduced EF, estimated EF at 40% to 45%. Aortic valve sclerosis without stenosis by Doppler interrogation. Left atrium grossly appears normal. Mitral valve is thickened. Mild MR. Right-sided chamber is grossly normal. Moderate TR. RV systolic pressure is estimated greater than or equal to 53 mmHg via the continuity equation. ECHOCARDIOGRAM REPORT [id number] JALEN JAMIL TRANSINT:[id number] Voice Confirmation ID: [id number] DOCUMENT ID: [id number] FARHEEN SANTIAGO MD at 1486 CC: [id number] DICTATION DATE: 09/20/19 1032 BUDGET TECHNICIAN: 09/20/19 1224 ADM IN [facility] [address] [facility]
--- NOTE | 2019-09-21 12:16 | OP ---
PATIENT NAME: JALEN JAMIL MEDICAL RECORD: [id number] :52 LOCATION:D.M2 D.2116 ADMISSION DATE:09/19/19 SURGEON: FARHEEN SANTIAGO MD DATE OF OPERATION: 09/21/2019 PROCEDURE: Left heart catheterization, selective coronary angiography, right femoral artery approach. CATHETERS: A 5-Albanian sheath, 5/4 left and right Brennen, 5/4 pig. The procedure was well tolerated. The patient returned to the betancourt, sheath removed. ExoSeal device placed. FINDINGS: Left ventriculography in 30-degree PERRY view: Severe global hypokinesis. Overall, LV function markedly reduced 20%. Apparently, moderate MR as well. CORONARY ANATOMY: LEFT MAIN: Left main is free of disease. LAD: An area of previous stent is widely patent. No evidence of subacute stent thrombosis. CIRCUMFLEX: Again, stent is widely patent without evidence of stent thrombosis. RIGHT CORONARY ARTERY: The right coronary artery is a small codominant system, free of disease. IMPRESSION: Severe cardiomyopathy, may have thrombosed and recanalized either to LAD or circ at some point given marked rise in decrease in troponin. Pressures are better. We will add ARB, Aldactone, short term Dobutrex. TRANSINT:[id number] Voice Confirmation ID: [id number] DOCUMENT ID: [id number] FARHEEN SANTIAGO MD at 1216 CC: [id number] DICTATION DATE: 09/21/19 1011 EXCAVATOR BACKHOE OPERATOR: 09/21/19 1121 ADM IN [place] [address] [place] [address]
--- NOTE | 2019-09-21 12:45 | NUR ---
BED REST UP. GROIN STABLE.
[2019-09-21 17:09] VITALS: BP 99/63
--- NOTE | 2019-09-21 19:38 | NUR ---
EVENING ROUNDS COMPLETED. PT AAOX4, AFVSS, NO S/S OF RT DISTRESS. DOBUTREX INFUSING @ 9.4 IN R.ARM. R.GROIN DRESSING C/D/I. ASSIST PT UP TO RESTROOM. LFA PIV INFILTRATED. REMOVED PIV AND RESTARTED NEW PIV IN R.HAND 22G X1 STICK. PT STATES REGULAR DIET WAS PROVIDED, BUT SHE FORGOT HER DENTURES AT HOME, SO SHE COULD NOT EAT DINNER. APPLE SAUCE AND PUDDING PROVIDED PER PT'S REQUEST. PT VOICED THANKS. PT DENIES ANY FURTHER NEEDS AT THIS TIME. WILL CTM. CL WITHIN REACH.
[2019-09-21 20:00] VITALS: BP 87/38
[2019-09-22] VITALS: BP 94/46
[2019-09-22 04:00] VITALS: BP 97/48
[2019-09-22 05:55] LABS: HEMATOCRIT 30.8 % (36.0-48.0); HEMOGLOBIN 9.9 g/dL (12-16); MCH 30.6 pg (26.0-34.0); MCHC 32.1 g/dL (31.0-37.0); MCV 95.1 fL (80.0-100.0); MEAN PLATELET VOLUME 10.6 fL (7.4-10.4); PLATELET COUNT 268 10x3/uL (130-400); RBC 3.24 10x6/uL (4.00-5.40); RDW 14.1 % (11.5-14.5); WBC 9.1 10x3/uL (4.8-10.8)
[2019-09-22 06:14] LABS: CALC OSMOLALITY 280 mosm/kg (275-300); CALCIUM 8.1 mg/dL (8.5-10.1); CARBON DIOXIDE 29.2 mmol/L (21.0-32.0); CHLORIDE - SERUM 103 mmol/L (98-107); CREATININE - SERUM 0.8 mg/dL (0.6-1.3); GLUCOSE 134 mg/dL (74-106); SODIUM 139 mmol/L (136-145); UREA NITROGEN 15 mg/dL (7-18); eGFR NON AFRICAN AMERICAN 76 mL/min (90-120)
[2019-09-22 06:15] LABS: POTASSIUM - SERUM 2.9 mmol/L (3.5-5.1)
[2019-09-22 08:42] VITALS: BP 111/60
[2019-09-22 09:29] LABS: ANISOCYTOSIS OCC; LYMPHOCYTES 8 % (15-50); MONOCYTES 10 % (2-11); NEUTROPHILS 82 % (40-80); PLATELET ESTIMATE NORMAL
--- NOTE | 2019-09-22 16:19 | MORECARE ---
CASE MANAGEMENT DISCHARGE SUMMARY PATIENT: JALEN JAMIL TILA UNIT: [id number] ADM DATE: 09/19/19 AGE: 68 : 51 SEX: F ROOM/BED: D.7967 AUTHOR: JULIETTE,DOC PHYSICIAN: REFERRING PHYSICIAN: LETICIA BEATTY MD DATE OF SERVICE: 09/22/19 Discharge Plan Patient Name: JALEN JAMIL Facility: [facility]:[place] : 1950 Planned Disposition: Home Anticipated Discharge Date: 09/23/19 Discharge Date: Expected LOS: 4 Initial Reviewer: [id number] Initial Review Date: 09/22/2019 Generated: 09/22/19 5:19 pm DCPIA - Discharge Planning Initial Assessment Updated by [email or web address]: Fidel Reyes on 09/22/19 4:18 pm * Is the patient Alert and Oriented? Yes * How many steps to enter\exit or inside your home? NONE * PCP DR. BEATTY * Pharmacy [facility] * Preadmission Environment Home Alone * ADLs Independent * Equipment None * Other Equipment NO MEDICAL EQUIPMENT PROVIDER PREFERENCE * List name and contact numbers for known caregivers / representatives who currently or will assist patient after discharge: CÉSAR MENEZES, FRIEND, * Verbal permission to speak to the caregivers and representatives has been obtained from the patient. N/A * Community resources currently utilized Home Health * Please name any agencies selected above. [facility] * Additional services required to return to the preadmission environment? No * Can the patient safely return to the preadmission environment? Yes * Has this patient been hospitalized within the prior 30 days at any hospital? Yes Coverage Notice Reviewer: [id number] Jaimie Reyes Notice Issued Date-Time: 09/22/2019 11:25 Notice Type: Patient Choice Letter Notice Delivered To: Patient Relationship to Patient: Gas Compressor Operator Name: Delivery Method: HAND - Hand Delivered Tram Days: Prior Verbal Notification: Recipient Understood Notice: Yes Recipient Signature: Yes Med Rec Note Co-signed by Attending: Coverage Notice Comment: REFUSAL OF HOME HEALTH Reviewer: [id number] Jaimie Reyes Notice Issued Date-Time: 09/22/2019 11:25 Notice Type: IM Discharge Notice Notice Delivered To: Patient Relationship to Patient: Gas Compressor Operator Name: Delivery Method: HAND - Hand Delivered Tram Days: Prior Verbal Notification: Recipient Understood Notice: Yes Recipient Signature: Yes Med Rec Note Co-signed by Attending: Coverage Notice Comment: Patient Name: JALEN JAMIL Page [id number] at 1619 All edits/amendments must be made on the electronic document DICTATION DATE: 09/22/191618 REGIONAL SALES MANAGER: SINCERE 09/22/199 RPT#: [id number] DC DATE: STATUS: ADM IN [facility] [address] [place] [address] END OF REPORT
--- NOTE | 2019-09-22 16:35 | MORECARE ---
CASE MANAGEMENT DISCHARGE SUMMARY PATIENT: JALEN JAMIL TILA UNIT: [id number] ADM DATE: 09/19/19 AGE: 68 : 51 SEX: F ROOM/BED: D.1059 AUTHOR: JULIETTE,DOC PHYSICIAN: REFERRING PHYSICIAN: LETICIA BEATTY MD DATE OF SERVICE: 09/22/19 Discharge Plan Patient Name: JALEN JAMIL Facility: [facility]:[place] : 1950 Planned Disposition: Home Anticipated Discharge Date: 09/23/19 Discharge Date: Expected LOS: 4 Initial Reviewer: [email or web address] Initial Review Date: 09/22/2019 Generated: 09/22/19 5:35 pm Comments DCP- Discharge Planning Updated by [id number]: Fidel Reyes on 09/22/19 3:[address] Patient Name: JALEN JAMIL Admission Status: ER Accout number: [id number] Admission Date: 09-19-2019 : 1950 Admission Diagnosis:SHORTNESS OF BREATH Attending: LETICIA BEATTY Current LOS: 3 Anticipated DC Date: 09-23-2019 Planned Disposition: Home Primary Insurance: [employer] Discharge Planning Comments: CM MET WITH PT IN ROOM TO DISCUSS DISCHARGE PLANNING AND NEEDS. PT REPORTS LIVING AT HOME INDEPENDENTLY AND ALONE. PT HAS NO MEDICAL EQUIPMENT. PT HAS HOME HEALTH WITH [facility] AND WAS THANKFUL TO HAVE THEM. CM DISCUSSED AVAILABILITY OF HOME HEALTH, REHAB SERVICES AND MEDICAL EQUIPMENT. PT DENIES DISCHARGE NEEDS; PT DOES NOT WANT HOME HEALTH TO CONTINUE. REFUSAL OF HOME HEALTH SIGNED. PT REPORTS HER COUSIN WILL COME TO "LOCK DOWN" WITH HER AT HOME AND HER 25 YEAR OLD GRANDSON WILL BE ABLE TO RUN ERRANDS AND SHOP FOR PT SO SHE WILL NOT HAVE TO GET OUT INTO PUBLIC. FAMILY WILL PICK PT UP FOR DISCHARGE HOME. IMPORTANT MESSAGE FROM MEDICARE PROVIDED AND EXPLAINED. PT PLANS TO DISCHARGE HOME, NO NEEDS. FAMILY TO TRANSPORT AT DISCHARGE. CM TO FOLLOW AND ASSIST NEEDED. Bulk Driver: Fidel Reyes DCPIA - Discharge Planning Initial Assessment Updated by [email or web address]: Fidel Reyes on 09/22/19 4:18 pm * Is the patient Alert and Oriented? Yes * How many steps to enter\\exit or inside your home? NONE * PCP DR. BEATTY * Pharmacy [facility] * Preadmission Environment Home Alone * ADLs Independent * Equipment None * Other Equipment NO MEDICAL EQUIPMENT PROVIDER PREFERENCE * List name and contact numbers for known caregivers / representatives who currently or will assist patient after discharge: CÉSAR MENEZES, SPENSER, * Verbal permission to speak to the caregivers and representatives has been obtained from the patient. N/A * Community resources currently utilized Home Health * Please name any agencies selected above. [facility] * Additional services required to return to the preadmission environment? No * Can the patient safely return to the preadmission environment? Yes * Has this patient been hospitalized within the prior 30 days at any hospital? Yes Coverage Notice Reviewer: [id number] Reyes Notice Issued Date-Time: 09/22/2019 11:25 Notice Type: Patient Choice Letter Notice Delivered To: Patient Relationship to Patient: Safety Spec Name: Delivery Method: HAND - Hand Delivered Tram Days: Prior Verbal Notification: Recipient Understood Notice: Yes Recipient Signature: Yes Med Rec Note Co-signed by Attending: Coverage Notice Comment: REFUSAL OF HOME HEALTH Reviewer: [id number] Reyes Notice Issued Date-Time: 09/22/2019 11:25 Notice Type: IM Discharge Notice Notice Delivered To: Patient Relationship to Patient: Safety Spec Name: Delivery Method: HAND - Hand Delivered Tram Days: Prior Verbal Notification: Recipient Understood Notice: Yes Recipient Signature: Yes Med Rec Note Co-signed by Attending: Coverage Notice Comment: Last DP export: 09/22/19 3:19 p Patient Name: JALEN JAMIL Page [phone] at 1635 All edits/amendments must be made on the electronic document DICTATION DATE: 09/22/19 1635 EDI SPECIALIST: SINCERE 09/22/19 1635 RPT#: [id number] DC DATE: STATUS: ADM IN [facility] [address] [place] [address] END OF REPORT
[2019-09-22 17:33] VITALS: BP 121/73
[2019-09-22 19:08] VITALS: BP 115/67
--- NOTE | 2019-09-22 19:53 | NUR ---
EVENING ROUNDS COMPLETED. AFVSS, AAOX3, RESTING COMFORTABLY IN BED. DENIES ANY PAIN AT THIS TIME. NO S/S OF RT DISTRESS. PT DENIES ANY NEED FOR COMFORT CARE. DOBUTREX GTT @9.4MLS/HR. SR ON TELE. WILL CPOC.
[2019-09-23 00:33] VITALS: BP 110/64
[2019-09-23 04:56] VITALS: BP 110/61
[2019-09-23 05:57] LABS: HEMATOCRIT 29.4 % (36.0-48.0); HEMOGLOBIN 9.4 g/dL (12-16); MCH 30.5 pg (26.0-34.0); MCV 95.5 fL (80.0-100.0); MEAN PLATELET VOLUME 10.8 fL (7.4-10.4); PLATELET COUNT 227 10x3/uL (130-400); RBC 3.08 10x6/uL (4.00-5.40); WBC 7.6 10x3/uL (4.8-10.8)
[2019-09-23 06:00] LABS: CALC OSMOLALITY 287 mosm/kg (275-300); CALCIUM 8.3 mg/dL (8.5-10.1); CARBON DIOXIDE 29.3 mmol/L (21.0-32.0); CHLORIDE - SERUM 107 mmol/L (98-107); CREATININE - SERUM 0.8 mg/dL (0.6-1.3); GLUCOSE 145 mg/dL (74-106); POTASSIUM - SERUM 4.3 mmol/L (3.5-5.1); SODIUM 142 mmol/L (136-145); UREA NITROGEN 18 mg/dL (7-18); VANCOMYCIN - TROUGH 16.9 ug/mL (10.0-20.0); eGFR NON AFRICAN AMERICAN 75 mL/min (90-120)
[2019-09-23 08:23] VITALS: BP 118/71
[2019-09-23 09:32] VITALS: Ht 165.1 cm; Wt 59.0 kg
[2019-09-23 10:09] LABS: HYPOCHROMASIA OCC; LYMPHOCYTES 6 % (15-50); MONOCYTES 6 % (2-11); NEUTROPHILS 88 % (40-80); PLATELET ESTIMATE NORMAL
[2019-09-23 15:18] VITALS: BP 126/81
--- NOTE | 2019-09-23 20:00 | NUR ---
REPORT RECIEVED AND ROUNDING COMPLETE. PATIENT LAYING IN BED IN LOW FOWLERS POSITION. PATIENT STATES SHE WOULD LIKE HER PAIN MEDICATIONS AND ANXIETY MEDICATION, WILL GIVE PER MAR. NO OTHER NEEDS AT THIS TIME. WEARING NASAL CANNULA WITH O2 AT 2L. LEFT HAND PIV THAT IS SALINE LOCKED AND A RIGHT FOREARM THAT IS RUNNING FLUIDS AT THIS TIME, BOTH PIV SHOWS NO S/SX OF INFILTRATION. CALL LIGHT WITHIN REACH AND BED IN LOWEST LOCKED POSITION.
[2019-09-23 21:18] VITALS: BP 135/84
[2019-09-24] VITALS: BP 100/57
--- NOTE | 2019-09-24 03:01 | NUR ---
AFTER TALKING WITH THE PATIENT STILL DOESNT WANT LAST DOES OF MEDICATION, BUT INFORMED ME THAT A LOT IS GOING ON IN HER LIFE, WITH HER XON DIEING AND HER SISTER MOVING AND ALL THE VIRUS STUFF, TALKED FOR A WHILE. PATIENT THINKS SHE IS HAVING SOB FROM HAVING PANIC ATTCKS. HAS CALMED DOWN NOW, GAVE MEDICATIONS PER AUG.
[2019-09-24 05:16] LABS: BASOPHILS 0 % (0-2); EOSINOPHILS 0 % (0-7); HEMATOCRIT 34.8 % (36.0-48.0); HEMOGLOBIN 10.9 g/dL (12-16); IMMATURE GRANULOCYTES 0.3 % (0-5); LYMPHOCYTES 4.1 % (15-50); MCH 29.9 pg (26.0-34.0); MCHC 31.3 g/dL (31.0-37.0); MCV 95.3 fL (80.0-100.0); MEAN PLATELET VOLUME 10.9 fL (7.4-10.4); MONOCYTES 4.7 % (2-11); NEUTROPHILS 90.9 % (40-80); RBC 3.65 10x6/uL (4.00-5.40); RDW 13.7 % (11.5-14.5)
[2019-09-24 05:20] LABS: PLATELET COUNT 303 10x3/uL (130-400); WBC 11.2 10x3/uL (4.8-10.8)
[2019-09-24 06:00] LABS: ANION GAP 13.7 mmol/L (8-16); CALCIUM 8.7 mg/dL (8.5-10.1); CARBON DIOXIDE 26.5 mmol/L (21.0-32.0); CREATININE - SERUM 0.9 mg/dL (0.6-1.3); POTASSIUM - SERUM 4.2 mmol/L (3.5-5.1)
[2019-09-24 09:16] VITALS: BP 120/77
[2019-09-24 14:18] VITALS: BP 122/76
[2019-09-24 18:14] VITALS: BP 141/75
--- NOTE | 2019-09-24 19:19 | NUR ---
RECEIVED BEDSIDE REPORT. PATIENT IS ALERT AND ORIENTED, RESTING COMFORTABLY IN BED. RESPIRATIONS ARE EVEN AND UNLABORED. NO S/S OF DISTRESS. NO C/O PAIN. CALL LIGHT WITHIN REACH. WILL CPOC.
[2019-09-24 20:00] VITALS: BP 181/72
[2019-09-25 05:42] LABS: BASOPHILS 0 % (0-2); EOSINOPHILS 0 % (0-7); HEMATOCRIT 33.3 % (36.0-48.0); HEMOGLOBIN 10.6 g/dL (12-16); IMMATURE GRANULOCYTES 0.2 % (0-5); LYMPHOCYTES 8.9 % (15-50); MCHC 31.8 g/dL (31.0-37.0); MCV 94.3 fL (80.0-100.0); MEAN PLATELET VOLUME 10.8 fL (7.4-10.4); MONOCYTES 8.7 % (2-11); NEUTROPHILS 82.2 % (40-80); PLATELET COUNT 301 10x3/uL (130-400); RBC 3.53 10x6/uL (4.00-5.40); RDW 13.5 % (11.5-14.5); WBC 8.8 10x3/uL (4.8-10.8)
[2019-09-25 06:08] LABS: ANION GAP 11.9 mmol/L (8-16); CALCIUM 8.8 mg/dL (8.5-10.1); CARBON DIOXIDE 29.9 mmol/L (21.0-32.0); CREATININE - SERUM 0.9 mg/dL (0.6-1.3); POTASSIUM - SERUM 4.8 mmol/L (3.5-5.1)
[2019-09-25 08:56] VITALS: BP 137/91
[2019-09-25] MEDS ORDERED: Levaquin PO (12:32)
[2019-09-25] MEDS ORDERED: EFFIENT10 MG PO (12:33)
[2019-09-25] MEDS ORDERED: ALDACTONE25 MG PO (12:34)
[2019-09-25] MEDS ORDERED: LANOXIN125 MCG PO (12:34)
[2019-09-25] MEDS ORDERED: COZAAR50 MG PO (12:34)
[2019-09-25] MEDS ORDERED: PROZAC20 MG PO (12:35)
[2019-09-25] MEDS ORDERED: LIBRIUM5 MG PO (12:36)
[2019-09-25] MEDS ORDERED: PREDNISONE20 MG PO (12:38)
[2019-09-25] MEDS ORDERED: ALBUTEROL SULF8.5 GM INH (12:39)
[2019-09-25 13:07] VITALS: BP 117/69
--- NOTE | 2019-09-25 14:05 | NUR ---
UPON ADMIT, PATIENT HAS NOT HAD A FLU SHOT. WHEN QUESTIONED FOR DISCHARGE SHE REFUSED.
--- NOTE | 2019-09-25 14:22 | MORECARE ---
CASE MANAGEMENT DISCHARGE SUMMARY PATIENT: JALEN JAMIL TILA UNIT: [id number] ADM DATE: 09/19/19 AGE: 69 : 51 SEX: F ROOM/BED: D.0710 AUTHOR: EMMANUEL SEGOVIA PHYSICIAN: REFERRING PHYSICIAN: LETICIA BEATTY MD DATE OF SERVICE: 09/25/19 Discharge Plan Patient Name: JALEN JAMIL Facility: [facility]:[place] : 1950 Planned Disposition: Home Anticipated Discharge Date: 09/25/19 Discharge Date: Expected LOS: 6 Initial Reviewer: [email or web address] Initial Review Date: 09/22/2019 Generated: 09/25/19 3:22 pm Comments DCP- Discharge Planning Updated by [email or web address]: Fidel Reyes on 09/25/19 1:[address] Patient Name: JALEN JAMIL Encounter No: [id number] : 1950 Primary Insurance: [employer] Anticipated DC Date: 09-25-2019 Planned Disposition: Home DCP follow-up note: CM MET WITH PT IN ROOM TO DISCUSS DISCHARGE NEEDS AND PLANNING. CM DISCUSSED AVAILABILITY OF HOME HEALTH, REHAB SERVICES AND MEDICAL EQUIPMENT. PT DENIES DISCHARGE NEEDS. FAMILY TO TRANSPORT HOME AT DISCHARGE. PT AGAIN STATES SHE DOES NOT WANT HOME HEALTH AT THIS TIME, ASKED CM TO CANCEL IT FOR HER. PT WILL HAVE HER COUSIN WITH HER AT HOME. IMPORTANT MESSAGE FROM MEDICARE PROVIDED AND EXPLAINED. GERONTOLOGY AIDE NURSE NOTIFIED. CM NOTIFIED MIDDLE OR INTERMEDIATE SCHOOL PRINCIPAL AT [employer] [facility] OF PT'S DECISION TO CANCEL HOME HEALTH AT THIS TIME. Fidel Reyes, CASE MANAGEMENT Appended by Fidel Reyes on 09/25/2019 14:21 CDT: CM RECEIVED CALL FROM MATT OF [employer] [facility] WHO WILL CALL PT TO CHECK WITH PT TO SEE IF PT IS WANTING HOME HEALTH TO JUST HOLD UNTIL PT FOLLOWS UP WITH HER PRIMARY DOCTOR IN TWO WEEKS FOR POSSIBLE RESUMPTION AT THAT TIME. Yossi HENRIQUEZ ASE MANAGEMENT DCP- Discharge Planning Updated by [email or web address]: Fidel Reyes on 09/22/19 3:[address] Patient Name: JALEN JAMIL Admission Status: ER Accout number: [id number] Admission Date: 09-19-2019 : 1950 Admission Diagnosis:SHORTNESS OF BREATH Attending: LETICIA BEATTY Current LOS: 3 Anticipated DC Date: 09-23-2019 Planned Disposition: Home Primary Insurance: [facility] Discharge Planning Comments: CM MET WITH PT IN ROOM TO DISCUSS DISCHARGE PLANNING AND NEEDS. PT REPORTS LIVING AT HOME INDEPENDENTLY AND ALONE. PT HAS NO MEDICAL EQUIPMENT. PT HAS HOME HEALTH WITH [facility] AND WAS THANKFUL TO HAVE THEM. CM DISCUSSED AVAILABILITY OF HOME HEALTH, REHAB SERVICES AND MEDICAL EQUIPMENT. PT DENIES DISCHARGE NEEDS; PT DOES NOT WANT HOME HEALTH TO CONTINUE. REFUSAL OF HOME HEALTH SIGNED. PT REPORTS HER COUSIN WILL COME TO "LOCK DOWN" WITH HER AT HOME AND HER 25 YEAR OLD GRANDSON WILL BE ABLE TO RUN ERRANDS AND SHOP FOR PT SO SHE WILL NOT HAVE TO GET OUT INTO PUBLIC. FAMILY WILL PICK PT UP FOR DISCHARGE HOME. IMPORTANT MESSAGE FROM MEDICARE PROVIDED AND EXPLAINED. PT PLANS TO DISCHARGE HOME, NO NEEDS. FAMILY TO TRANSPORT AT DISCHARGE. CM TO FOLLOW AND ASSIST NEEDED. Marine Fireman: Fidel Reyes DCPIA - Discharge Planning Initial Assessment Updated by [id number]: Fidel Reyes on 09/22/19 4:18 pm * Is the patient Alert and Oriented? Yes * How many steps to enter\\exit or inside your home? NONE * PCP DR. BEATTY * Pharmacy [facility] * Preadmission Environment Home Alone * ADLs Independent * Equipment None * Other Equipment NO MEDICAL EQUIPMENT PROVIDER PREFERENCE * List name and contact numbers for known caregivers / representatives who currently or will assist patient after discharge: CÉSAR CHYNA, FRIEND, * Verbal permission to speak to the caregivers and representatives has been obtained from the patient. N/A * Community resources currently utilized Home Health * Please name any agencies selected above. [facility] * Additional services required to return to the preadmission environment? No * Can the patient safely return to the preadmission environment? Yes * Has this patient been hospitalized within the prior 30 days at any hospital? Yes Coverage Notice Reviewer: [id number] Jaimie Reyes Notice Issued Date-Time: 09/25/2019 13:20 Notice Type: Notice Delivered To: Relationship to Patient: Supervisor Fish Bait Processing Name: Delivery Method: - Tram Days: Prior Verbal Notification: Recipient Understood Notice: Recipient Signature: Med Rec Note Co-signed by Attending: Coverage Notice Comment: Reviewer: [id number] Jaimie Reyes Notice Issued Date-Time: 09/22/2019 11:25 Notice Type: Patient Choice Letter Notice Delivered To: Patient Relationship to Patient: Supervisor Fish Bait Processing Name: Delivery Method: HAND - Hand Delivered Tram Days: Prior Verbal Notification: Recipient Understood Notice: Yes Recipient Signature: Yes Med Rec Note Co-signed by Attending: Coverage Notice Comment: REFUSAL OF HOME HEALTH Reviewer: [id number] Jaimie Reyes Notice Issued Date-Time: 09/22/2019 11:25 Notice Type: IM Discharge Notice Notice Delivered To: Patient Relationship to Patient: Supervisor Fish Bait Processing Name: Delivery Method: HAND - Hand Delivered Tram Days: Prior Verbal Notification: Recipient Understood Notice: Yes Recipient Signature: Yes Med Rec Note Co-signed by Attending: Coverage Notice Comment: Last DP export: 09/22/19 3:35 p Patient Name: JALEN JAMIL Page [id number] at 1422 All edits/amendments must be made on the electronic document DICTATION DATE: 09/25/191421 MANAGING COGNITIVE ENGINEER: SINCERE 09/25/19 142 RPT#: [id number] DC DATE: STATUS: ADM IN [facility] [address] [place] [address] END OF REPORT
== END 2019-09-25 15:00 | disposition home or self-care (01) | DRG 280 ==
LOC: D.ER 04:32 → D.M2 06:59
PROVIDERS: Family Medicine; Internal Medicine Interventional Cardiology; ADMIT Family Medicine; ATTEND Family Medicine
PROC: B2151ZZ Fluoroscopy of Left Heart using Low Osmolar Contrast (ICD-10-PCS; 2019-09-21)
PROC: 4A023N7 Measurement of Cardiac Sampling and Pressure, Left Heart, Percutaneous Approach (ICD-10-PCS; 2019-09-21)
PROC: B2111ZZ Fluoroscopy of Multiple Coronary Arteries using Low Osmolar Contrast (ICD-10-PCS; principal; 2019-09-21 09:35)
DX: I11.0 Hypertensive heart disease with heart failure (principal); J18.9 Pneumonia, unspecified organism; I21.4 Non-ST elevation (NSTEMI) myocardial infarction; J44.0 Chronic obstructive pulmonary disease with (acute) lower respiratory infection; J44.1 Chronic obstructive pulmonary disease with (acute) exacerbation; I42.9 Cardiomyopathy, unspecified; I25.10 Atherosclerotic heart disease of native coronary artery without angina pectoris; I50.9 Heart failure, unspecified; Z72.0 Tobacco use; I50.43 Acute on chronic combined systolic (congestive) and diastolic (congestive) heart failure

== ENCOUNTER → 2020-03-15 13:12 | Outpatient (CLI) | payer OTHER, MEDICAID ==
[2019-09-23 09:32] VITALS: BMI 21.6
--- NOTE | ~2020-03-15 | EC ---
PATIENT:JALEN JAMIL DATE OF SERVICE: 03/15/20 SEX: F MEDICAL RECORD: [id number] DATE OF : [birth year] LOCATION:D[facility] AGE OF PATIENT: 69 ADMISSION DATE: 03/15/20 REFERRING PHYSICIAN: INTERPRETING PHYSICIAN: FARHEEN SANTIAGO MD ECHOCARDIOGRAM REPORT ECHO CHARGES 4 ECHO COMPLETE Date: 03/15/20 CLINICAL DIAGNOSIS: CAD/ASSESS EF ECHOCARDIOGRAPHIC MEASUREMENTS (adult normal given) AC root (d.<3.7cm) 3.3 cm LV Septum d (<1.2 cm> 1.3 cm Valve Excursion 1.3 cm LV Septum (systole) 1.4 cm Left Atria (s.<4.0cm> 4.0 cm LVPW d(<1.2cm) 1.2 cm RV (d.<2.3cm) 2.9 cm LVPW (sytole) 1.6 cm LV diastole(<5.6CM) 5.5 cm MV E-F(>70mm/sec) cm LV systole 3.8 cm LVOT Diameter 1.9 cm MV exc.(>10mm) 1.3 cm Est.ejection fraction (50-75%) % DOPPLER: LVIT cm/sec A 95.0 cm/sec E 56.0 cm/sec LA cm/sec RVSP 29 mmHg LVOT 66 cm/sec AOP1/2T m/s Asc. Ao 98 cm/sec RVOT 75 cm/sec RA cm/sec PA 85 cm/sec AV Gradient Peak 3.84 mmHg AV Mean 2.11 mmHg AV Area 1.8 cm MV Gradient Peak 2.86 mmHg MV Mean 0.65 mmHg MV Area cm COMMENTS: .Net Architect: 2 YUSEF VIDAL Promotional Marketing Agent: 3 Dr. Robbins TAPE# PACS Pericardial Effusion N DATE OF SERVICE: Adequate 2D, color flow imaging, spectral Doppler, and M-Mode. Mild LVH. LV internal dimensions are normal. Wall motion is normal. EF is greater than or equal to 55%. Aortic valve is tricuspid. There is no evidence of stenosis by Doppler interrogation. Left atrium is upper limits of normal at 4.0 cm. 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 Right-sided chambers are grossly normal. Moderate TR. ECHOCARDIOGRAM REPORT [id number] JALEN JAMIL TRANSINT:[id number] Voice Confirmation ID: [id number] DOCUMENT ID: [id number] FARHEEN SANTIAGO MD CC: [id number] DICTATION DATE: 03/15/20 154 GAS COMPRESSOR OPERATOR: 03/15/20 23[address] [facility] [address] [place] [id number]
[~2020-03-15 13:12] MED LIST changes: +ALBUTEROL SULF8.5 GM INH; +ALDACTONE25 MG PO; +COZAAR50 MG PO; +EFFIENT10 MG PO; +LANOXIN125 MCG PO; +LIBRIUM5 MG PO; +Levaquin PO; +PREDNISONE20 MG PO
== END | disposition home or self-care (01) ==
LOC: D.HCCECHO 13:12
PROVIDERS: ATTEND Internal Medicine Interventional Cardiology
DX: I25.10 Atherosclerotic heart disease of native coronary artery without angina pectoris (principal)

== ENCOUNTER → 2020-11-30 20:41 | Outpatient (CLI) | payer OTHER, MEDICAID ==
[2019-09-23 09:32] VITALS: BMI 21.6
[2020-11-30 21:59] LABS: CALC OSMOLALITY 273 mosm/kg (275-300); CALCIUM 8.9 mg/dL (8.5-10.1); CARBON DIOXIDE 27.6 mmol/L (21.0-32.0); CHLORIDE - SERUM 98 mmol/L (98-107); CREATININE - SERUM 0.8 mg/dL (0.6-1.3); DIGOXIN 1.23 ng/mL (0.90-2.00); POTASSIUM - SERUM 5.4 mmol/L (3.5-5.1); SODIUM 136 mmol/L (136-145); UREA NITROGEN 21 mg/dL (7-18); eGFR NON AFRICAN AMERICAN 75 mL/min (90-120)
[2020-11-30 22:00] LABS: GLUCOSE 78 mg/dL (74-106)
== END | disposition home or self-care (01) ==
LOC: D.LABREF 20:41
PROVIDERS: ATTEND Nurse Practitioner Adult Health
DX: I42.9 Cardiomyopathy, unspecified (principal)